=== PATIENT | female | born 1955 | race Caucasian/White ===

== ENCOUNTER 2020-11-27 13:26 | Emergency (ER) | payer BC, SELFPAY ==
--- NOTE | ~2020-11-27 | XR_ITS ---
XR chest 2V DATE: 11/27/2020 13:45 INDICATION: Chest pain TECHNIQUE: PA and lateral views COMPARISON: 03/22/2010 PA and lateral chest FINDINGS: Left AICD device with leads overlying right atrium and right ventricle. Normal heart size. No hilar or mediastinal enlargement. No pulmonary infiltrate or consolidation, pleural effusion or pulmonary vascular congestion or pneumo thorax. Surgical clips overlie the right upper abdomen, consistent with cholecystectomy. Osteoarthritic changes at the glenohumeral joints. IMPRESSION: No active cardiopulmonary disease Left AICD dual-lead pacemaker device Status post cholecystectomy Reviewed, dictated and finalized at location A.
--- NOTE | 2020-11-27 13:31 | ECG_ITS ---
Measurements Intervals [place] Rate: 96 P: 62 NC: 157 QRS: 69 QRSD: 89 T: 65 QT: 335 QTc: 424 Interpretive Statements SINUS RHYTHM LOW QRS VOLTAGE IN PRECORDIAL LEADS BASELINE ARTIFACT- I, II, III, AVR, AVL BORDERLINE ECG Electronically Signed On 11-27-2020 13:35:15 CDT by Niko Hummel D.O.
[2020-11-27 13:39] VITALS: BP 99/53; PULSE 92; RESP 16; TEMP 36.8; O2SAT 99
[2020-11-27 13:47] LABS: Basophils Absolute Auto 0.1 K/mm3 (0.0-0.1); Basophils Percent Auto 0.9 % (0.2-1.2); Eosinophils Absolute Auto 0.1 K/mm3 (0-0.3); Eosinophils Percent Auto 1.6 % (0-4.4); Hematocrit 38.5 % (37.0-47.0); Hemoglobin 12.2 g/dL (12.0-15.0); Immature Granulocyte Absolute 0.03 K/mm3 (0.00-0.031); Immature Granulocyte Percent A 0.4 % (0-0.5); Lymphocytes Absolute Auto 1.29 K/mm3 (0.9-3.2); Lymphocytes Percent Auto 15.2 % (18.3-44.2); Mean Corpuscular HGB Conc 31.7 g/dl (32-36); Mean Corpuscular Hemoglobin 27.3 pg (26-34); Mean Corpuscular Volume 86.1 fl (80-100); Monocytes Absolute Auto 0.8 K/mm3 (0.1-0.6); Monocytes Percent Auto 9.5 % (2.6-8.5); Neutrophils Absolute Auto 6.2 K/mm3 (1.3-6.7); Neutrophils Percent Auto 72.4 % (45.5-73.1); Platelet Count Result 251 k/mm3 (150-375); Red Blood Count 4.47 M/mm3 (4.2-5.4); White Blood Count 8.5 K/mm3 (4.5-10.0)
[2020-11-27 14:00] LABS: INR 0.9; Partial Thromboplastin Time 27.9 SECONDS (22.3-36.8); Prothrombin Time 12.5 Seconds (11.1-14.7)
[2020-11-27 14:02] LABS: Anion Gap 11 mmol/L (8-16); Blood Urea Nitrogen 15 mg/dL (7-17); Calcium 9.3 mg/dL (8.4-10.2); Carbon Dioxide 23 mmol/L (22-30); Chloride 94 mmol/L (98-107); Estimated CRCL calculation 53 ml/min; Estimated Glomerular Filt Rate > 60; Glucose 115 mg/dL (65-110); Potassium 4.3 mmol/L (3.4-5.0); Sodium 128 mmol/L (137-145)
[2020-11-27 14:13] LABS: Troponin I < 0.012 ng/mL (0.000-0.034)
--- NOTE | 2020-11-27 14:21 | PC.NURSE ---
contacted pt junior [phone] per pts request. states just wants to go home to bed. will follow up with pmd or [employer]oc operations intelligence officer tomorrow per rns recommendations. en route to get pt.
== END 2020-11-27 14:20 | disposition left against medical advice (07) ==
PROVIDERS: Emergency Provider Emergency Medicine
DX: Z53.21 Procedure and treatment not carried out due to patient leaving prior to being seen by health care provider (principal); R06.02 Shortness of breath
CPT/HCPCS: 36415; 71046; 80048; 84484; 85025; 85610; 85730; 93005; 99199

== ENCOUNTER 2021-05-08 15:00 | Emergency (ER) | payer BC, SELFPAY ==
[2021-05-08 15:07] VITALS: BP 112/64; PULSE 121; RESP 20; TEMP 35.7; O2SAT 97
[2021-05-08 15:09] VITALS: BP 112/64; PULSE 121; RESP 20; TEMP 35.7; O2SAT 97
--- NOTE | 2021-05-08 15:17 | ED.URI ---
HPI - URI/Sore Throat General Chief Complaint: Upper Respiratory Infection Stated Complaint: sob History of Present Illness HPI Narrative: This is 65-year-old female comes in complaining of inability to urinate states that she has stage III kidney failure. Patient states that she continues to sweat and then call since her symptoms started yesterday patient informs me she has quit smoking since yesterday. She complains of shortness of breath patient informs me she has a pacemaker with a defibrillator denies any chest pains patient denies being diabetic patient states that she does not feel well she tested herself for COVID prior to coming in and it was negative patient tells me she is vaccinated with the SH[employer] vaccination Related Data Home Medications Medication Instructions Recorded Confirmed carvedilol 05/08/21 clonazepam 05/08/21 dicyclomine mg 05/08/21 duloxetine mg PO 05/08/21 hyoscyamine sulfate mg 05/08/21 lisinopril 05/08/21 omeprazole 05/08/21 spironolactone 05/08/21 zolpidem PO 05/08/21 Allergies Allergy/AdvReac Type Severity Reaction Status Date / Time Penicillins Allergy Mild Unknown Verified 05/08/21 15:09 codeine Allergy Unknown Unknown Verified 05/08/21 15:09 prednisone Allergy Unknown Verified 05/08/21 15:09 Review of Systems Review of Systems: Sweating, shortness of breath, coughing, not feeling well, painful urination, urination red All systems reviewed & are unremarkable except as noted in HPI and below PMFSH Family History Family History (Updated 06/03/17 @ 10:53 by DOCTOR UNKNOWN) Grandparent Diabetes mellitus Father Carcinoma of colon Social History Social History Alcohol intake: current Comments At time as signature, I have reviewed and agree with nursing past medical, social, surgical and family history. Please see nursing chart for further information. There is no relevant family history pertinent to the presenting complaint. Exam Narrative: GENERAL:Well-appearing, very anxious and goes in and out of crying HEAD:Normocephalic EYES: PERRLA ENT: Nares clear, no rhinorrhea or epistaxis. Mucous membranes moist. NECK: Supple. CHEST: Clear to auscultation. HEART: tachycardy ABDOMEN: Soft, nontender, EXTREMITIES: Normal range of motion. No edema. SKIN: Warm, dry, no rash. NEURO: No focal deficits. Alert and oriented x3. After long discussion with patient and her patient crying at time and then saying she short of breath although lung are clear. I was informed that patient has severe anxiety and she is noramally like this when she get nervous or anxious . states that if she get short of breath or if he get worried about her breathing he will take her to the hosptial but he does not feel like she needs to go now. Patient informs me she is going to do what her say as he takes good care of her per patient. Course Course Level of Care: Express Care Visit Vital Signs Vital signs: Vital Signs Temperature 96.3 F L 05/08/21 15:07 Pulse Rate 121 H 05/08/21 15:07 Respiratory Rate 20 05/08/21 15:07 Blood Pressure 112/64 05/08/21 15:07 Pulse Oximetry 97 05/08/21 15:07 Temperature 96.3 F L 05/08/21 15:09 Pulse Rate 121 H 05/08/21 15:09 Respiratory Rate 20 05/08/21 15:09 Blood Pressure 112/64 05/08/21 15:09 Pulse Oximetry 97 05/08/21 15:09 MDM - URI/Sore Throat Differential Diagnosis Differential diagnosis: Likely upper respiratory infection and other (UTI, anxiety) Lab Data Labs: Urine Glucose Negative Reference Range: Negative Urine Bilirubin Negative Reference Range: Negative Urine Ketone Negative Reference Range: Negative Urine Specific [place] 1.005
== END 2021-05-08 16:06 | disposition home or self-care (01) ==
PROVIDERS: Emergency Provider Nurse Practitioner Family
DX: N39.0 Urinary tract infection, site not specified (principal); N18.30 Chronic kidney disease, stage 3 unspecified; Z95.810 Presence of automatic (implantable) cardiac defibrillator
CPT/HCPCS: 81003; 87077; 87086; 87186; 99213; G0463

== ENCOUNTER 2021-05-10 12:59 | Inpatient (IN) | payer BC, SELFPAY ==
[2021-05-10] VITALS (15 sets, daily range): BP systolic 90–126; BP diastolic 40–79; PULSE 68–109; RESP 16–31; TEMP 36.5–39.4; O2SAT 94–100; BMI 32.1
--- NOTE | ~2021-05-10 | XR_ITS ---
EXAMINATION: XR chest 1V portable EXAM DATE: 05/12/2021 23:07 INDICATION: Shortness of breath. TECHNIQUE: Portable AP frontal chest x-ray was obtained. Comparison is made to prior examination from 05/10/2021. FINDINGS: There is a dual lead pacemaker/AICD seen with leads projecting over the expected locations of the right atrial appendage and right ventricle. The lungs are clear. There are no pleural effusio ns. The cardiomediastinal silhouette is within normal limits. There is no pneumothorax suspected. There are mild bony degenerative changes. IMPRESSION: No acute cardiopulmonary findings. Reviewed, dictated and finalized at location A. IDE SALES REPRESENTATIVE
--- NOTE | ~2021-05-10 | XR_ITS ---
EXAMINATION: XR chest 1V EXAM DATE: 05/10/2021 14:21 INDICATION: Weakness. Transient alteration of awareness. TECHNIQUE: Portable AP frontal chest x-ray was obtained. Comparison is made to prior examination from 11/27/2020. FINDINGS: There is a dual lead pacemaker/AICD seen with leads projecting over the expected locations of the right atrial appendage and right ventricle. The lungs are clear. There are no pleural effusio ns. Cardiac silhouette is prominent but magnified on this AP technique. There is no pneumothorax s uspected. The bones and soft tissues are unremarkable. IMPRESSION: No acute cardiopulmonary findings. Reviewed, dictated and finalized at location B. [place] LOAN ORIGINATOR
--- NOTE | ~2021-05-10 | CT_ITS ---
EXAMINATION: CT abdomen pelvis wo con DATE: 05/10/2021 14:18 INDICATION: Abdominal pain. Urinary tract infection diagnosis on May 08. TECHNIQUE: Computed tomography (CT) of the abdomen and pelvis was performed without intravenous contr ast. Automated exposure control and iterative reconstruction technique were employed. Exam dose: 990 .37 mGy-cm total exam DLP. COMPARISON: 02/28/2016 CT abdomen pelvis FINDINGS: There is mild discoid atelectasis or scarring of the middle lobe. The lung bases are clear of consolidation. Normal heart size. Right atrial and right ventricle pacemaker leads. Normal heart s ize. No pericardial or pleural effusion. Very small sliding hiatal hernia. There is right nephromegaly and perinephric stranding and thickening of the right anterior and fingernail former ior pararenal fascia. There is some periureteral stranding on the right. No urinary tract calculus is detected. Findings suggest right pyelonephritis. Normal size of the left kidney. No perinephric stranding or perirenal fascial thickening on the left. No left urinary tract calculus or hydroureteronephrosis. The urinary bladder is unremarkable. Status post hysterectomy. There is a mild amount of free fluid in the dependent pelvis. Normal appendix. Diverticulosis of the sigmoid colon. No CT evidence of diverticulitis. No bowel obst ruction, bowel wall thickening, pneumatosis or intraperitoneal free air. Normal caliber of the abdominal aorta. No intraperitoneal or retroperitoneal or pelvic mass lesion or adenopathy. Status post cholecystectomy. There are calcified splenic granulomas consistent with old granulomatous disease. The liver, spleen, pancreas and adrenal glands are unremarkable. No bile duct or pancreatic duct dilatation. No suspicious osteolytic or osteoblastic lesions. IMPRESSION: Right nephromegaly, right perinephric stranding and thickening of the anterior and poste rior pararenal fascia on the right, right periureteral stranding, consistent with right-sided pyelone phritis No urinary tract calculus or hydroureteronephrosis Status post cholecystectomy Status post hysterectomy Very small sliding hiatal hernia Diverticulosis of the sigmoid colon; no CT evidence of diverticulitis Reviewed, dictated and finalized at Location A. Reviewed, dictated and finalized at location A. ERN DATA OPERATOR IMPRESSION: Right nephromegaly, right perinephric stranding and thickening of the anterior and posterior pararenal fascia on the right, right periureteral st randing, consistent with right-sided pyelonephritis No urinary tract calculus or hydroureteronephrosis Status post cholecystectomy Status post hysterectomy Very small sliding hiatal hernia Diverticulosis of the sigmoid colon; no CT evidence of diverticulitis
--- NOTE | ~2021-05-10 | CT_ITS ---
EXAMINATION: CT brain wo con, CT cervical spine wo con EXAM DATE: 05/10/2021 14:18 INDICATION: syncope/ head injury . TECHNIQUE: Spiral CT of the head was performed without contrast. Axial, coronal and sagittal images were reviewed. Spiral CT of the cervical spine was performed without contrast. Axial images were rev iewed. Coronal and sagittal reformatted images were also reviewed. The dose-length product (DLP) fo r this examination was 605.33 (accession [id number]), 492.68 (accession [id number]) mGy-cm. The exposure was tailored according to patient size, and iterative reconstruction (ASIR) was used as additional dose reduction technique. Comparison is made to prior examination from [address] FINDINGS: HEAD CT: There is no acute intraparenchymal hemorrhage. No evidence of intraparenchymal brain mass l esion. No evidence of acute infarction. There is no mass effect or midline shift. There is no obstru ctive hydrocephalus suspected. There are no extra-axial collections. There are no acute calvarial f ractures. The orbits are unremarkable. Soft tissue is unremarkable. The visualized sinuses and mas toid air cells are well aerated. CERVICAL CT: There is no evidence of acute cervical fracture. The odontoid process is intact. Pre- dens space is normal. Prevertebral soft tissue is normal. There are no soft tissue abnormalities id entified. There is no disc space widening or traumatic vertebral body subluxation suspected. There is advanced lower cervical spondylosis, diffuse cervical arthropathy. A detailed level by level eval uation of spondylosis can be added as addendum if requested. IMPRESSION: 1. No acute intracranial findings or cervical fracture. 2. Advanced cervical spondylosis. Reviewed, dictated and finalized at location B. EDITATION COORDINATOR IMPRESSION: 1. No acute intracranial findings or cervical fracture. 2. Advanced cervical spondylosis.
--- NOTE | 2021-05-10 13:14 | ECG_ITS ---
Measurements Intervals [place] Rate: 107 P: 67 CA: 146 QRS: 80 QRSD: 101 T: 67 QT: 314 QTc: 420 Interpretive Statements SINUS TACHYCARDIA POSSIBLE LEFT ATRIAL ENLARGEMENT BORDERLINE T WAVE ABNORMALITY- ANTERIOR LEADS BASELINE ARTIFACT- I, III, AVR, AVL ABNORMAL ECG Electronically Signed On 05-10-2021 13:44:35 PLUMBING MECHANIC by Niko Hummel D.O.
[2021-05-10 13:29] LABS: Basophils Percent Auto 0.2 % (0.2-1.2); Eosinophils Percent Auto 0.1 % (0-4.4); Hematocrit 32.8 % (37.0-47.0); Hemoglobin 10.9 g/dL (12.0-15.0); Immature Granulocyte Absolute 0.15 K/mm3 (0.00-0.031); Lymphocytes Absolute Auto 0.36 K/mm3 (0.9-3.2); Lymphocytes Percent Auto 2.5 % (18.3-44.2); Mean Corpuscular HGB Conc 33.2 g/dl (32-36); Mean Corpuscular Hemoglobin 27.7 pg (26-34); Mean Corpuscular Volume 83.5 fl (80-100); Mean Platelet Volume 10.1 fl (7.4-10.4); Monocytes Percent Auto 7.1 % (2.6-8.5); Neutrophils Absolute Auto 13.1 K/mm3 (1.3-6.7); Neutrophils Percent Auto 89.1 % (45.5-73.1); Platelet Count Result 158 k/mm3 (150-375); Red Blood Count 3.93 M/mm3 (4.2-5.4); Red Cell Distribution Width 12.7 % (11.5-14.5); White Blood Count 14.6 K/mm3 (4.5-10.0)
[2021-05-10 13:40] LABS: Lactic Acid Reflex 0.9 mmol/L (0.7-2.1)
[2021-05-10 13:41] LABS: Alanine Aminotransferase 53 U/L (4-35); Albumin Level 3.9 g/dL (3.5-5.1); Alkaline Phosphatase 186 U/L (38-126); Anion Gap 9 mmol/L (8-16); Aspartate Amino Transferase 39 U/L (14-36); Bilirubin,Total 0.5 mg/dL (0.2-1.3); Blood Urea Nitrogen 18 mg/dL (7-17); Calcium 9.3 mg/dL (8.4-10.2); Carbon Dioxide 26 mmol/L (22-30); Chloride 89 mmol/L (98-107); Estimated CRCL calculation 39 ml/min; Estimated Glomerular Filt Rate 41; Glucose 110 mg/dL (65-110); INR 1.2; Potassium 4.4 mmol/L (3.4-5.0); Prothrombin Time 14.7 Seconds (11.1-14.7); Sodium 124 mmol/L (137-145)
[2021-05-10 13:42] LABS: Partial Thromboplastin Time 32.6 SECONDS (22.3-36.8)
[2021-05-10 14:07] LABS: Add Urine Microscopic? YES; Appearance Urine Clear (Clear); Bacteria Urine 4+ /hpf; Bilirubin Urine Negative (Negative); Blood Urine 2+ (Negative); Color Urine Yellow (Yellow); Glucose Urine UA Negative (Negative); Ketones Urine Trace mg/dL (Negative); Leukocyte Esterase Ur 3+ LEU/UL (Negative); Mucus Urine Rare /lpf; Nitrate Urine Positive (Negative); Protein Urine 2+ mg/dL (Negative); Specific Grav Ur 1.006 (1.001-1.035); Squamous Epithelial Cell Urine Rare /hpf (Few); WBC Urine >75 /hpf
[2021-05-10] MEDS: SODIUM CHLORIDE 0.9% IV 1,000 ML 999 ML IV CONT ×2 (14:27→16:15)
--- NOTE | 2021-05-10 15:37 | ED.GENADULT ---
HPI - General Adult General Chief complaint: Altered Mental Status Stated complaint: hallucinating, recent uti Time Seen by Provider: 05/10/21 13:47 History of Present Illness HPI narrative: Patient 65-year-old female who presents the emergency department with chief complaint of fever change in mental status. The patient reports she was seen in urgent care on the and was diagnosed with a UTI. The patient states that since then she has been extremely weak and has been running a fever and at times has been hallucinating. The patient states that symptoms are not improved by anything reports has been taking Macrobid without improvement in her. Patient reports that she fell at home and has bruising present on her face. Related Data Home Medications Medication Instructions Recorded Confirmed carvedilol 05/08/21 clonazepam 05/08/21 dicyclomine mg 05/08/21 duloxetine mg PO 05/08/21 hyoscyamine sulfate mg 05/08/21 lisinopril 05/08/21 omeprazole 05/08/21 spironolactone 05/08/21 zolpidem PO 05/08/21 Allergies Allergy/AdvReac Type Severity Reaction Status Date / Time Penicillins Allergy Mild Unknown Verified 05/08/21 15:09 codeine Allergy Unknown Unknown Verified 05/08/21 15:09 prednisone Allergy Unknown Verified 05/08/21 15:09 Review of Systems Review of Systems: A 10 system review of systems was completed on the patient and is negative except for what is stated in the HPI. Nursing and ancillary documentation was reviewed. [facility] Family History Family History Grandparent Diabetes mellitus Father Carcinoma of colon Social History Social History Alcohol intake: current Exam Narrative: GENERAL: Well-appearing, well-nourished, and in no acute distress. HEAD: Normocephalic, there is bruising present on the face. EYES: PERRLA and EOMI. ENT: Nares clear, no rhinorrhea or epistaxis. Mucous membranes moist. NECK: Supple. CHEST: Clear to auscultation. No respiratory distress. HEART: Regular rate and rhythm. No murmur heard. Normal peripheral pulses. ABDOMEN: Soft, nontender, nondistended, normal active bowel sounds. EXTREMITIES: Normal range of motion. No edema. SKIN: Warm, dry, no rash. NEURO: No focal deficits. Alert and oriented x3. Tearful PSYCH: Normal mood and affect. Course Vital Signs Vital signs: Vital Signs Temperature 38.3 C H 05/10/21 13:02 Pulse Rate 68 05/10/21 13:02 Respiratory Rate 18 05/10/21 13:02 Blood Pressure 94/40 L 05/10/21 13:02 Pulse Oximetry 100 05/10/21 13:02 Temperature 38.2 C H 05/10/21 15:23 Pulse Rate 99 05/10/21 15:23 Respiratory Rate 22 H 05/10/21 15:23 Blood Pressure 102/61 05/10/21 15:23 Pulse Oximetry 94 05/10/21 15:23 Medical Decision Making Vital Signs Vital Signs: Vital Signs Temperature 38.3 C H 05/10/21 13:02 Pulse Rate 68 05/10/21 13:02 Respiratory Rate 18 05/10/21 13:02 Blood Pressure 94/40 L 05/10/21 13:02 Pulse Oximetry 100 05/10/21 13:02 Temperature 38.2 C H 05/10/21 15:23 Pulse Rate 99 05/10/21 15:23 Respiratory Rate 22 H 05/10/21 15:23 Blood Pressure 102/61 05/10/21 15:23 Pulse Oximetry 94 05/10/21 15:23 Lab Data Result diagrams: 05/10/21 13:17 05/10/21 13:17 Labs: Lab Results 05/10/21 05/10/21 05/10/21 Range/Units 13:17 13:17 13:17 WBC 14.6 H (4.5-10.0) K/mm3 RBC 3.93 L (4.2-5.4) M/mm3 Hgb 10.9 L (12.0-15.0) g/dL Hct 32.8 L (37.0-47.0) % MCV 83.5 (80-100) fl MCH 27.7 (26-34) pg MCHC 33.2 (32-36) g/dl RDW 12.7 (11.5-14.5) % Plt Count 158 (150-375) k/mm3 MPV 10.1 (7.4-10.4) fl Immature Gran % (Auto) 1.0 H (0-0.5) % Neut % (Auto) 89.1 H (45.5-73.1) % Lymph % (Auto) 2.5 L (18.3-44.2) % [place] % (Auto) 7.1 (2.6-8.5) % Eos % (Auto) 0.
--- NOTE | 2021-05-10 17:19 | PC.NURSE ---
This patient, Jj Hughes, was admitted to Medical Room 258-. Patient/family oriented to hospital policies and general routines including ID bracelet, bed and alarms, visiting hours, pain management, procedures, bathroom and other care routines, personal items, smoking policy, room service/diet, and visiting hours. Information on how to activate the Rapid Response Team has been discussed. Patient/Family are encouraged to report perceived risks to care and to ask questions if they do not understand what they are told or what they should do.
--- NOTE | 2021-05-10 17:30 | PM.IMHP ---
H&P: HPI History of Present Illness Date/Time: 05/10/21 17:30 Chief Complaint: Fever and hallucinations. Narrative: This is a 65-year-old female with hypertension, chronic kidney disease stage 3, and nonischemic cardiomyopathy status post ICD insertion who presented to the emergency department earlier today for evaluation of fever and hallucinations. She has not felt well for several days with generalized malaise, subjective fever, and sweats. She took a home COVID test which was negative and thus she went to urgent care on 05/08/2021 for further evaluation. At that time she was diagnosed with a urinary tract infection and was discharged with a prescription for Macrobid. Despite taking the antibiotic she has continued to feel worse and in fact last evening she developed a pretty high fever and had hallucinations, reportedly seeing things on the ceiling that she knew were not there. Additionally her appetite has been poor and she has been feeling lightheaded, dizzy, and weak upon standing. Last night she stood up to go to the bathroom and became extremely lightheaded and she fell forward onto the ground, striking the right side of her face. She does not think that she lost consciousness however she cannot be certain. CT of the abdomen and pelvis showed findings consistent with right pyelonephritis and she is being admitted in this setting. At the time my evaluation she is resting comfortably and does complain of mild dysuria, urinary urgency, and low back ache. She denies headache, visual changes, sinus congestion, sore throat, cough, chest pain, palpitations, shortness of breath, vomiting, and diarrhea. Review of Systems Review of Systems: Twelve systems were reviewed and are negative except for as per HPI. [facility] Past Medical History Medical History (Updated 05/10/21 @ 23:33 by Monalisa Costa PA-C) Congestive heart failure (12/2007) Severe LV systolic dysfunction with significant mitral regurgitation. Status post PM/ICD insertion. Depression with anxiety Gastroesophageal reflux disease Hepatitis C (2004) Treated with interferon per Dr. Wong at [facility]. Hypothyroidism Surgical History Surgical History (Updated 05/10/21 @ 23:33 by Monalisa Costa PA-C) History of cholecystectomy History of dilation and curettage (03/2010) For abnormal uterine bleeding. Pathology was benign. History of tonsillectomy Presence of combination internal cardiac defibrillator (ICD) and pacemaker (2007) Family History Family History (Updated 05/10/21 @ 16:22 by Monalisa Costa PA-C) Grandparent Diabetes mellitus Father Carcinoma of colon Mother , at age 38 from complications of rheumatic fever. Rheumatic fever Social History Social History (Updated 05/10/21 @ 23:31 by Monalisa Costa PA-C) Social History: Lives in [place] with her . She has 2 grown children. Smoked up to a pack of cigarettes a day for 48 years, now vaping a majority of the time. No alcohol or illicit substance abuse. She designates her as her surrogate decision maker and wishes to be a full code. Meds Home Medications and Allergies Home Medications Medication Instructions Recorded Confirmed Type carvedilol 12.5 mg PO BID 05/08/21 05/10/21 History clonazepam 2 mg PO TID 05/08/21 05/10/21 History dicyclomine 20 mg PO BID 05/08/21 05/10/21 History duloxetine 60 mg PO DAILY 05/08/21 05/10/21 History hyoscyamine sulfate 0.125 mg PO PRN 05/08/21 05/10/21 History lisinopril 2.5 mg PO DAILY 05/08/21 05/10/21 History omeprazole 20 mg PO BID 05/08/21 05/10/21 History spironolactone 25 mg PO DAILY 05/08/21 05/10/21 History zolpidem 12.5 mg PO HS 05/08/21 05/10/21 History bupropion HCl 300 mg PO HS 05/10/21 05/10/21 History levothyroxine 88 mcg PO DAILY 05/10/21 05/10/21 History nortriptyline 10 mg PO HS 05/10/21 05/10/21 History ondansetron 8 mg PO PRN PRN 05/10/21 05/10/21 History Allergies Allergy/AdvReac Type Severity Reaction
[2021-05-10] MEDS: SODIUM CHLORIDE 0.9% IV 1,000 ML 125 ML IV CONT (17:49)
[2021-05-10 23:48] LABS: Anion Gap 9 mmol/L (8-16); Blood Urea Nitrogen 18 mg/dL (7-17); Calcium 8.2 mg/dL (8.4-10.2); Carbon Dioxide 21 mmol/L (22-30); Chloride 98 mmol/L (98-107); Creatine Kinase 236 U/L (30-135); Estimated CRCL calculation 47 ml/min; Estimated Glomerular Filt Rate 50; Glucose 94 mg/dL (65-110); Magnesium 1.8 mg/dL (1.6-2.3); Potassium 4.3 mmol/L (3.4-5.0); Sodium 128 mmol/L (137-145)
[2021-05-10] MEDS: buPROPion HCL XL (24 HR) 150 MG TABCR 300 MG PO (23:55)
[2021-05-10] MEDS: DICYCLOMINE HCL 10 MG CAPSULE 20 MG PO (23:55)
[2021-05-10] MEDS: carvediloL 12.5 MG TABLET PO (23:56)
[2021-05-11] VITALS (14 sets, daily range): BP systolic 99–117; BP diastolic 43–68; PULSE 66–104; RESP 16–20; TEMP 36.6–38.3; O2SAT 95–98
[2021-05-11 00:51] LABS: CRP 26.8 mg/dL (<1.0)
[2021-05-11 01:15] LABS: Hepatitis B Surface Antigen Negative (Negative)
[2021-05-11 01:21] LABS: HAV RESULT Negative (Negative); Hepatitis B Core IgM Result Negative (Negative)
[2021-05-11] MEDS: NORTRIPTYLINE HCL 10 MG CAPSULE PO ×2 (01:32→20:32)
[2021-05-11] MEDS: SODIUM CHLORIDE 0.9% IV 1,000 ML 80 ML IV CONT ×2 (01:32→16:57)
[2021-05-11 02:29] LABS: Hepatitis C Virus Antibody Reactive (Negative)
[2021-05-11 03:38] LABS: Creatinine Urine 36.4 mg/dL
[2021-05-11 03:47] LABS: Sodium Urine Random 36 meq/L
[2021-05-11 05:46] LABS: Basophils Percent Auto 0.3 % (0.2-1.2); Eosinophils Percent Auto 0.1 % (0-4.4); Hematocrit 28.5 % (37.0-47.0); Hemoglobin 9.4 g/dL (12.0-15.0); Immature Granulocyte Absolute 0.07 K/mm3 (0.00-0.031); Immature Granulocyte Percent A 0.7 % (0-0.5); Lymphocytes Absolute Auto 0.33 K/mm3 (0.9-3.2); Lymphocytes Percent Auto 3.3 % (18.3-44.2); Mean Corpuscular Hemoglobin 27.9 pg (26-34); Mean Corpuscular Volume 84.6 fl (80-100); Mean Platelet Volume 10.4 fl (7.4-10.4); Monocytes Absolute Auto 0.9 K/mm3 (0.1-0.6); Monocytes Percent Auto 9.1 % (2.6-8.5); Neutrophils Absolute Auto 8.7 K/mm3 (1.3-6.7); Neutrophils Percent Auto 86.5 % (45.5-73.1); Platelet Count Result 142 k/mm3 (150-375); Red Blood Count 3.37 M/mm3 (4.2-5.4); Red Cell Distribution Width 13.2 % (11.5-14.5); White Blood Count 10.1 K/mm3 (4.5-10.0)
[2021-05-11 05:51] LABS: Alanine Aminotransferase 38 U/L (4-35); Alkaline Phosphatase 142 U/L (38-126); Anion Gap 10 mmol/L (8-16); Aspartate Amino Transferase 31 U/L (14-36); Bilirubin,Total 0.3 mg/dL (0.2-1.3); Blood Urea Nitrogen 17 mg/dL (7-17); Calcium 8.1 mg/dL (8.4-10.2); Carbon Dioxide 20 mmol/L (22-30); Chloride 99 mmol/L (98-107); Estimated CRCL calculation 47 ml/min; Estimated Glomerular Filt Rate 50; Glucose 95 mg/dL (65-110); Potassium 4.3 mmol/L (3.4-5.0); Sodium 129 mmol/L (137-145)
[2021-05-11] MEDS: LEVOTHYROXINE SODIUM 88 MCG TABLET PO (06:12)
[2021-05-11] MEDS: PANTOPRAZOLE 40 MG TABLET PO ×2 (09:08→16:53)
[2021-05-11] MEDS: carvediloL 12.5 MG TABLET PO ×2 (09:08→20:39)
[2021-05-11] MEDS: DICYCLOMINE HCL 10 MG CAPSULE 20 MG PO ×2 (09:08→16:53)
[2021-05-11] MEDS: lisinopriL 2.5 MG TABLET PO (09:08)
[2021-05-11] MEDS: DULoxetine HCL 60 MG CAPSULE.DR PO (09:08)
[2021-05-11] MEDS: ACETAMINOPHEN 325 MG TABLET 650 MG PO (09:43)
[2021-05-11] MEDS: clonazePAM (*CRX) 0.5 MG TABLET 2 MG PO ×3 (09:43→22:31)
--- NOTE | 2021-05-11 12:49 | PM.IMPN ---
Progress Note: A&P Assessment and Plan (1) Sepsis: Qualifiers: Sepsis type: sepsis due to unspecified organism Sepsis acute organ dysfunction status: with acute organ dysfunction Severe sepsis acute organ dysfunction type: acute renal failure Acute renal failure type: unspecified Severe sepsis shock status: without septic shock Qualified Code(s): A41.9 - Sepsis, unspecified organism; R65.20 - Severe sepsis without septic shock; N17.9 - Acute kidney failure, unspecified Code(s): A41.9 - Sepsis, unspecified organism Status: Acute Assessment and Plan: Present on admission and supported by fever, tachycardia, relative hypotension responsive to IV fluids, and leukocytosis in the setting of pyelonephritis. Lactic acid level within normal limits. urine culture with ESBL E coli (2) Pyelonephritis of right kidney: Code(s): N12 - Tubulo-interstitial nephritis, not specified as acute or chronic Status: Acute Assessment and Plan: 05/10 ceftriaxone begun 05/11 discontinued ceftriaxone and started Zosyn due to ESBL E coli in culture (3) Fall from ground level: Code(s): W18.30XA - Fall on same level, unspecified, initial encounter Status: Acute Assessment and Plan: Patient is uncertain if she had loss of consciousness but was feeling weak and lightheaded prior to the fall. hydration fall precautions (4) Acute kidney injury: Code(s): N17.9 - Acute kidney failure, unspecified Status: Acute Assessment and Plan: Patient reports chronic kidney disease stage 3 though it looks like her creatinine is elevated from baseline. She is being cautiously hydrated with close monitoring of volume status. Avoid nephrotoxic agents. follow-up lab (5) Hyponatremia: Code(s): E87.1 - Hypo-osmolality and hyponatremia Status: Acute Assessment and Plan: Likely due to dehydration. Monitor with hydration 05/10 124, 05/11 129 (6) Elevated LFTs: Code(s): R79.89 - Other specified abnormal findings of blood chemistry Status: Acute Assessment and Plan: May be related to infection/sepsis though she has a history of hepatitis C which was treated many years ago. Abdominal exam is fairly benign. Liver was unremarkable on CT. Subjective Date/time seen: 05/11/21 12:49 Interval history: 05/10 admitted after fall and found to have urinary tract infection with imaging consistent with acute pyelonephritis 05/11 still very tired denied pain appetite poor. Still febrile Review of Systems Review of Systems: All systems reviewed & are unremarkable except as noted in HPI and below Exam Narrative: HEENT: PERRL, sclerae nonicteric, pharyngeal mucosa pink and intact NECK: No JVD CHEST: Clear to auscultation. Normal effort. HEART: NL S1/S2, regular, no murmur ABDOMEN: BS+, soft, nontender, no mass, no bruits EXTREMITIES: No cyanosis, edema, or clubbing NEUROLOGIC: CN intact and symmetric to inspection. MUSCULOSKELETAL: Tone and strength symmetric. PSYCH: Alert. Oriented to person, place, and time. Objective Data Vital Signs Vital Signs: Vital Signs - 24 hr 05/10/21 13:02 05/10/21 13:27 05/10/21 13:28 Temperature 101.0 F H 102.9 F H Pulse Rate 68 109 H 107 H Respiratory Rate 18 29 H 23 H Blood Pressure 94/40 L 126/79 Pulse Oximetry 100 98 05/10/21 13:30 05/10/21 13:31 05/10/21 13:37 Temperature Pulse Rate 107 H 100 Respiratory Rate 28 H 31 H Blood Pressure 98/59 L Pulse Oximetry 05/10/21 13:45 05/10/21 13:46 05/10/21 14:56 Temperature 99.6 F Pulse Rate 108 H 109 H Respiratory Rate 27 H 26 H Blood Pressure 114/56 L Pulse Oximetry 05/10/21 15:23 05/10/21 15:50 05/10/21 16:28 Temperature 100.7 F H 99.6 F Pulse Rate 99 93 Respiratory Rate 22 H 23 H Blood Pressure 102/61 90/55 L Pulse Oximetry 94 98 05/10/21 16:43 05/10/21 16:56 05/10/21 20:01 Temperature 97.7
[2021-05-11] MEDS: ERTAPENEM 1 GM/NS 50 ML 1 GM/50 ML BAG IVPB (14:00)
[2021-05-11] MEDS: buPROPion HCL XL (24 HR) 150 MG TABCR 300 MG PO (20:32)
[2021-05-12] VITALS (15 sets, daily range): BP systolic 113–134; BP diastolic 55–88; PULSE 72–107; RESP 18–32; TEMP 36.8–37.2; O2SAT 92–98
[2021-05-12] MEDS: LEVOTHYROXINE SODIUM 88 MCG TABLET PO (05:35)
[2021-05-12] MEDS: SODIUM CHLORIDE 0.9% IV 1,000 ML 80 ML IV CONT (05:35)
[2021-05-12 06:12] LABS: Hematocrit 29.2 % (37.0-47.0); Hemoglobin 9.6 g/dL (12.0-15.0); Mean Corpuscular HGB Conc 32.9 g/dl (32-36); Mean Corpuscular Volume 85.1 fl (80-100); Mean Platelet Volume 10.1 fl (7.4-10.4); Platelet Count Result 174 k/mm3 (150-375); Red Blood Count 3.43 M/mm3 (4.2-5.4); Red Cell Distribution Width 13.5 % (11.5-14.5); White Blood Count 10.4 K/mm3 (4.5-10.0)
[2021-05-12 06:29] LABS: Alanine Aminotransferase 37 U/L (4-35); Albumin Level 3.1 g/dL (3.5-5.1); Alkaline Phosphatase 138 U/L (38-126); Anion Gap 10 mmol/L (8-16); Aspartate Amino Transferase 38 U/L (14-36); Bilirubin,Total 0.3 mg/dL (0.2-1.3); Blood Urea Nitrogen 14 mg/dL (7-17); Calcium 8.3 mg/dL (8.4-10.2); Carbon Dioxide 19 mmol/L (22-30); Chloride 101 mmol/L (98-107); Estimated CRCL calculation 51 ml/min; Estimated Glomerular Filt Rate 56; Glucose 100 mg/dL (65-110); Potassium 4.3 mmol/L (3.4-5.0); Sodium 130 mmol/L (137-145)
[2021-05-12] MEDS: PANTOPRAZOLE 40 MG TABLET PO ×2 (08:35→16:24)
[2021-05-12] MEDS: DICYCLOMINE HCL 10 MG CAPSULE 20 MG PO ×2 (08:35→16:24)
[2021-05-12] MEDS: carvediloL 12.5 MG TABLET PO ×2 (08:35→20:09)
[2021-05-12] MEDS: lisinopriL 2.5 MG TABLET PO (08:35)
[2021-05-12] MEDS: DULoxetine HCL 60 MG CAPSULE.DR PO (08:35)
--- NOTE | 2021-05-12 10:55 | PM.IMPN ---
Progress Note: A&P Assessment and Plan (1) Sepsis: Qualifiers: Sepsis type: sepsis due to unspecified organism Sepsis acute organ dysfunction status: with acute organ dysfunction Severe sepsis acute organ dysfunction type: acute renal failure Acute renal failure type: unspecified Severe sepsis shock status: without septic shock Qualified Code(s): A41.9 - Sepsis, unspecified organism; R65.20 - Severe sepsis without septic shock; N17.9 - Acute kidney failure, unspecified Code(s): A41.9 - Sepsis, unspecified organism Status: Acute Assessment and Plan: Present on admission and supported by fever, tachycardia, relative hypotension responsive to IV fluids, and leukocytosis in the setting of pyelonephritis. Lactic acid level within normal limits. urine and blood cultures with ESBL E coli (2) Pyelonephritis of right kidney: Code(s): N12 - Tubulo-interstitial nephritis, not specified as acute or chronic Status: Acute Assessment and Plan: 05/10 ceftriaxone begun 05/11 discontinued ceftriaxone and started Zosyn due to ESBL E coli in culture 05/12 Day 2 Zosyn. ESBL e. coli in urine and in blood x2/2 bc (3) Fall from ground level: Code(s): W18.30XA - Fall on same level, unspecified, initial encounter Status: Acute Assessment and Plan: Patient is uncertain if she had loss of consciousness but was feeling weak and lightheaded prior to the fall. hydration fall precautions (4) Acute kidney injury: Code(s): N17.9 - Acute kidney failure, unspecified Status: Acute Assessment and Plan: Patient reports chronic kidney disease stage 3 though it looks like her creatinine is elevated from baseline. She is being cautiously hydrated with close monitoring of volume status. Avoid nephrotoxic agents. 05/12 Creatinine normalized to 1.0 (down from 1.3) (5) Hyponatremia: Code(s): E87.1 - Hypo-osmolality and hyponatremia Status: Acute Assessment and Plan: Likely due to dehydration. Monitor with hydration 05/10 124, 05/11 129, 05/12 130 05/12 Stop IVF and give one dose of furosemide 20mg IV due to clinically apparent volume overload F/u lab (6) Elevated LFTs: Code(s): R79.89 - Other specified abnormal findings of blood chemistry Status: Acute Assessment and Plan: May be related to infection/sepsis though she has a history of hepatitis C which was treated many years ago. Abdominal exam is fairly benign. Liver was unremarkable on CT. 05/12 AST 38, ALT 37 Subjective Date/time seen: 05/12/21 10:55 Interval history: 05/10 admitted after fall and found to have urinary tract infection with imaging consistent with acute pyelonephritis 05/12 visit. Still very tired denied pain appetite poor. Still febrile. Short of breath with exertion. No chest pain. No swelling. No abdominal pain. No nausea or vomiting. No diarrhea or bleeding. No hematuria. Generalized weakness but no focal weakness. Review of Systems Review of Systems: All systems reviewed & are unremarkable except as noted in HPI and below Exam Narrative: HEENT: PERRL, sclerae nonicteric, pharyngeal mucosa pink and intact NECK: No JVD CHEST: Coarse breath sounds. Mildly tachypneic. HEART: NL S1/S2, regular, no murmur ABDOMEN: BS+, soft, nontender, no mass, no bruits EXTREMITIES: No cyanosis, edema, or clubbing NEUROLOGIC: CN intact and symmetric to inspection. MUSCULOSKELETAL: Tone and strength symmetric. PSYCH: Alert. Oriented to person, place, and time. Objective Data Vital Signs Vital Signs: Vital Signs - 24 hr 05/11/21 10:59 05/11/21 14:00 05/11/21 20:00 Temperature 97.8 F Pulse Rate 81 104 H Respiratory Rate 20 Blood Pressure 102/56 L Pulse Oximetry 95 96 05/11/21 20:39 05/11/21 20:41 05/12/21 00:00 Temperature 97.8 F Pulse Rate 104 H 66 97 Respiratory Rate 16 Blood Pressure 117/64 Pulse Oximetry 98 05/12
[2021-05-12] MEDS: ERTAPENEM 1 GM/NS 50 ML 1 GM/50 ML BAG IVPB (12:28)
--- NOTE | 2021-05-12 14:58 | PCOTNOTE ---
Attempted to evaluate pt. for occupational therapy. Pt. refused to participate and get out of bed.
[2021-05-12] MEDS: clonazePAM (*CRX) 0.5 MG TABLET 2 MG PO (16:22)
[2021-05-12] MEDS: FUROSEMIDE INJ 40 MG/4 ML VIAL 20 MG IV PUSH (20:08)
[2021-05-12] MEDS: buPROPion HCL XL (24 HR) 150 MG TABCR 300 MG PO (20:09)
[2021-05-12] MEDS: NORTRIPTYLINE HCL 10 MG CAPSULE PO (20:10)
[2021-05-12] MEDS: IPRATROPIUM BR 0.02% INH SOLN 0.5 MG/2.5 ML VIAL INHALATION (23:07)
[2021-05-12] MEDS: LEVALBUTEROL NEB 1.25 MG/3 ML 0.63 MG INHALATION (23:07)
[2021-05-13] VITALS (14 sets, daily range): BP systolic 104–140; BP diastolic 48–79; PULSE 73–98; RESP 18–22; TEMP 36.2–37.1; O2SAT 90–99
[2021-05-13 00:43] LABS: Glucose Point of Care 94 mg/dl (65-105)
[2021-05-13 01:07] LABS: Alveolar/Arterial O2 Gradient 43.2 mmHg; Base Excess ABG -1.2 mEq/l (+/-2.0); Device ROOM AIR; Fractional Inspired Oxygen 21 %; HCO3 ABG 22.9 mEq/l (22.0-26.0); Modified Allen's Test Unable to perform; Oxygen Content ABG 13.4 %vol (16.0-22.0); Oxygen Saturation ABG 92.8 % (95.0-100.0); PCO2 ABG 36.1 mmHg (35.0-45.0); PO2 ABG 63.3 mmHg (80.0-100.0); PO2 FiO2 Ratio Arterial Blood 3.01 %; Site Drawn RIGHT RADIAL; Total Hemoglobin 10.4 g/dL (12.0-18.0); pH ABG 7.421 (7.350-7.450)
[2021-05-13] MEDS: LEVOTHYROXINE SODIUM 88 MCG TABLET PO (05:38)
--- NOTE | 2021-05-13 07:48 | PCOTNOTE ---
Attempted OT evaluation, patient reports I'm fine and I am not working with therapy right now , will follow, RN notified.
[2021-05-13] MEDS: carvediloL 12.5 MG TABLET PO ×2 (09:00→20:48)
[2021-05-13] MEDS: DICYCLOMINE HCL 10 MG CAPSULE 20 MG PO ×2 (09:00→16:52)
[2021-05-13] MEDS: lisinopriL 2.5 MG TABLET PO (09:00)
[2021-05-13] MEDS: DULoxetine HCL 60 MG CAPSULE.DR PO (09:00)
[2021-05-13] MEDS: PANTOPRAZOLE 40 MG TABLET PO ×2 (09:00→16:52)
[2021-05-13 11:18] LABS: Hematocrit 30.1 % (37.0-47.0); Mean Corpuscular HGB Conc 33.2 g/dl (32-36); Mean Corpuscular Hemoglobin 27.9 pg (26-34); Mean Corpuscular Volume 83.8 fl (80-100); Mean Platelet Volume 10.2 fl (7.4-10.4); Platelet Count Result 242 k/mm3 (150-375); Red Blood Count 3.59 M/mm3 (4.2-5.4); Red Cell Distribution Width 13.7 % (11.5-14.5); White Blood Count 15.9 K/mm3 (4.5-10.0)
[2021-05-13 11:29] LABS: Alanine Aminotransferase 54 U/L (4-35); Albumin Level 3.4 g/dL (3.5-5.1); Alkaline Phosphatase 135 U/L (38-126); Anion Gap 9 mmol/L (8-16); Aspartate Amino Transferase 62 U/L (14-36); Bilirubin,Total 0.4 mg/dL (0.2-1.3); Blood Urea Nitrogen 11 mg/dL (7-17); Calcium 8.8 mg/dL (8.4-10.2); Carbon Dioxide 24 mmol/L (22-30); Chloride 98 mmol/L (98-107); Estimated CRCL calculation 56 ml/min; Estimated Glomerular Filt Rate > 60; Glucose 132 mg/dL (65-110); Potassium 4.3 mmol/L (3.4-5.0); Sodium 131 mmol/L (137-145)
[2021-05-13] MEDS: ERTAPENEM 1 GM/NS 50 ML 1 GM/50 ML BAG IVPB (12:21)
--- NOTE | 2021-05-13 14:30 | PM.IMPN ---
Progress Note: A&P Assessment and Plan (1) Sepsis: Qualifiers: Sepsis type: sepsis due to unspecified organism Sepsis acute organ dysfunction status: with acute organ dysfunction Severe sepsis acute organ dysfunction type: acute renal failure Acute renal failure type: unspecified Severe sepsis shock status: without septic shock Qualified Code(s): A41.9 - Sepsis, unspecified organism; R65.20 - Severe sepsis without septic shock; N17.9 - Acute kidney failure, unspecified Code(s): A41.9 - Sepsis, unspecified organism Status: Acute Assessment and Plan: Present on admission and supported by fever, tachycardia, relative hypotension responsive to IV fluids, and leukocytosis in the setting of pyelonephritis. Lactic acid level within normal limits. Urine and blood cultures with ESBL E coli. (2) Pyelonephritis of right kidney: Code(s): N12 - Tubulo-interstitial nephritis, not specified as acute or chronic Status: Acute Assessment and Plan: CT of the abdomen and pelvis showed right nephromegaly,perinephric stranding, thickening of the anterior and posterior pararenal fascia, and periureteral stranding, consistent with right-sided pyelonephritis. Started on ceftriaxone on 05/10/2021, discontinue the following day due to ESBL E coli in urine culture. Zosyn day #3. (3) Fall from ground level: Code(s): W18.30XA - Fall on same level, unspecified, initial encounter Status: Acute Assessment and Plan: Fall prior to admission with possible loss of consciousness though patient is uncertain. Likely related to weakness from sepsis, infection, and dehydration. She has been adequately hydrated. Telemetry reviewed, no significant findings thus will discontinue. PT/OT consulted. Continue fall precautions. (4) Acute kidney injury: Code(s): N17.9 - Acute kidney failure, unspecified Status: Resolved Assessment and Plan: Resolved. Creatinine was 1.30 on admission, now normal at 0.90. Likely elevated due to dehydration and infection. (5) Hyponatremia: Code(s): E87.1 - Hypo-osmolality and hyponatremia Status: Acute Assessment and Plan: [place] to be due to dehydration. Sodium has improved. Adequately hydrated with improvement in sodium (sodium trend 128, 124, 128, 129, 130, 131). IV fluids discontinued on 05/12/2021 due to apparent volume overload, given Lasix x1. (6) Elevated LFTs: Code(s): R79.89 - Other specified abnormal findings of blood chemistry Status: Acute Assessment and Plan: History of hepatitis C treated years ago. May be related to infection/sepsis. Liver unremarkable on CT. Abdominal exam benign. (7) Congestive heart failure: Onset Date: 12/2007 Code(s): I50.9 - Heart failure, unspecified Status: Chronic Assessment and Plan: She is positive 3 L this visit. IV fluids discontinued yesterday. Lasix IV given yesterday. Appears euvolemic now. Restart spironolactone Continue lisinopril and carvedilol. (8) Sore throat: Code(s): J02.9 - Acute pharyngitis, unspecified Status: Acute Assessment and Plan: Patient reports a ?severe? sore throat over the last couple of days, the were she has ever had. Check rapid strep and SARS-CoV-2 by PCR. Subjective Date/time seen: 05/13/21 14:30 Interval history: Assuming care, chart reviewed. 65-year-old female with HTN, CKD, and NICM s/p PM/ICD who presented to the ED on 04/21/2021 with fever, generalized malaise and hallucinati
[2021-05-13 18:56] LABS: SARS-CoV-2 RNA PCR Negative
[2021-05-13] MEDS: buPROPion HCL XL (24 HR) 150 MG TABCR 300 MG PO (20:48)
[2021-05-13] MEDS: NORTRIPTYLINE HCL 10 MG CAPSULE PO (20:49)
[2021-05-14] VITALS (7 sets, daily range): BP systolic 100–122; BP diastolic 50–92; PULSE 77–88; RESP 16–22; TEMP 35.9–36.6; O2SAT 94–100
[2021-05-14 05:48] LABS: Hemoglobin 9.9 g/dL (12.0-15.0); Mean Corpuscular Hemoglobin 27.7 pg (26-34); Mean Platelet Volume 9.9 fl (7.4-10.4); Platelet Count Result 243 k/mm3 (150-375); Red Blood Count 3.57 M/mm3 (4.2-5.4); Red Cell Distribution Width 13.7 % (11.5-14.5); White Blood Count 12.1 K/mm3 (4.5-10.0)
[2021-05-14 05:55] LABS: Alanine Aminotransferase 55 U/L (4-35); Alkaline Phosphatase 117 U/L (38-126); Anion Gap 8 mmol/L (8-16); Aspartate Amino Transferase 55 U/L (14-36); Bilirubin,Total 0.4 mg/dL (0.2-1.3); Blood Urea Nitrogen 11 mg/dL (7-17); Calcium 8.7 mg/dL (8.4-10.2); Carbon Dioxide 29 mmol/L (22-30); Chloride 97 mmol/L (98-107); Estimated CRCL calculation 56 ml/min; Estimated Glomerular Filt Rate > 60; Glucose 105 mg/dL (65-110); Potassium 3.9 mmol/L (3.4-5.0); Sodium 134 mmol/L (137-145)
[2021-05-14] MEDS: LEVOTHYROXINE SODIUM 88 MCG TABLET PO (08:55)
[2021-05-14] MEDS: carvediloL 12.5 MG TABLET PO (08:55)
[2021-05-14] MEDS: SPIRONOLACTONE 25 MG TABLET PO (08:56)
[2021-05-14] MEDS: PANTOPRAZOLE 40 MG TABLET PO ×2 (08:56→16:56)
[2021-05-14] MEDS: lisinopriL 2.5 MG TABLET PO (08:56)
[2021-05-14] MEDS: DULoxetine HCL 60 MG CAPSULE.DR PO (08:56)
[2021-05-14] MEDS: DICYCLOMINE HCL 10 MG CAPSULE 20 MG PO ×2 (08:56→16:56)
--- NOTE | 2021-05-14 11:52 | PM.IMPN ---
Progress Note: A&P Assessment and Plan (1) Sepsis: Qualifiers: Sepsis type: sepsis due to unspecified organism Sepsis acute organ dysfunction status: with acute organ dysfunction Severe sepsis acute organ dysfunction type: acute renal failure Acute renal failure type: unspecified Severe sepsis shock status: without septic shock Qualified Code(s): A41.9 - Sepsis, unspecified organism; R65.20 - Severe sepsis without septic shock; N17.9 - Acute kidney failure, unspecified Code(s): A41.9 - Sepsis, unspecified organism Status: Acute Assessment and Plan: Present on admission and supported by fever, tachycardia, relative hypotension responsive to IV fluids, and leukocytosis in the setting of pyelonephritis. Lactic acid level within normal limits. Urine and blood cultures with ESBL E coli. (2) Pyelonephritis of right kidney: Code(s): N12 - Tubulo-interstitial nephritis, not specified as acute or chronic Status: Acute Assessment and Plan: CT of the abdomen and pelvis showed right nephromegaly,perinephric stranding, thickening of the anterior and posterior pararenal fascia, and periureteral stranding, consistent with right-sided pyelonephritis. Pt was initially on iv rocephin empherically Urine and blood cultures with ESBL E col Zosyn day #4. rpt UC today Hopeful Dc chris (3) Fall from ground level: Code(s): W18.30XA - Fall on same level, unspecified, initial encounter Status: Acute Assessment and Plan: . PT/OT consulted. Continue fall precautions. (4) Acute kidney injury: Code(s): N17.9 - Acute kidney failure, unspecified Status: Resolved Assessment and Plan: Resolved. Creatinine was 1.30 on admission, now normal at 0.90. Likely elevated due to dehydration and infection. (5) Hyponatremia: Code(s): E87.1 - Hypo-osmolality and hyponatremia Status: Acute Assessment and Plan: [place] to be due to dehydration. Sodium has improved. to 134 (6) Elevated LFTs: Code(s): R79.89 - Other specified abnormal findings of blood chemistry Status: Acute Assessment and Plan: History of hepatitis C treated years ago. May be related to infection/sepsis. Liver unremarkable on CT. Abdominal exam benign. (7) Congestive heart failure: Onset Date: 12/2007 Code(s): I50.9 - Heart failure, unspecified Status: Chronic Assessment and Plan: Initally pt given fluids then Lasix IV given. Appears euvolemic now. Restart spironolactone Continue lisinopril and carvedilol. (8) Sore throat: Code(s): J02.9 - Acute pharyngitis, unspecified Status: Acute Assessment and Plan: Check rapid strep result still pending Subjective Date/time seen: 05/14/21 11:52 Interval history: 65-year-old female with HTN, CKD, and NICM s/p PM/ICD who presented to the ED on 04/21/2021 with fever, generalized malaise and hallucinations found to have urinary tract infection and [place] [id number], no specific compliants, pt doing better hopeful DC tomorrow Review of Systems Review of Systems: All systems reviewed & are unremarkable except as noted in HPI and below Exam Const: General: other (elderly lady ) Orientation/consciousness: oriented to person HENMT: Head: normal to inspection Resp: Effort & Inspection: no respiratory distress Auscultation: no rhonchi and no wheezes Cardio: Rate: regular rate Rhythm: regular rhythm GI: Inspection: normal
[2021-05-14] MEDS: ERTAPENEM 1 GM/NS 50 ML 1 GM/50 ML BAG IVPB (13:30)
--- NOTE | 2021-05-14 14:17 | PCPTNOTE ---
Patient refused treatment this session. When arrived in patients room had to wake patient up who then stated I am to comfortable at this time to get out of bed and I will be going home tomorrow . Therapist attempted to educate patient on trying to perform transfers for safety around the house when returning home, which the patient stated Don't need to worry about that, I am safe.
--- NOTE | 2021-05-14 17:17 | PC.NURSE ---
On 05/14/21 the student Juve Morales, provided care and completed [employer] documentation on this patient. I have reviewed the students documentation and agree with the findings
[2021-05-14 19:07] LABS: Osmolality, Urine 202 mOsm/kg (50-1200)
[2021-05-14] MEDS: buPROPion HCL XL (24 HR) 150 MG TABCR 300 MG PO (20:15)
[2021-05-14] MEDS: NORTRIPTYLINE HCL 10 MG CAPSULE PO (20:20)
[2021-05-14] MEDS: ZOLPIDEM TARTRATE (*CRX) 5 MG TABLET 10 MG PO (20:57)
[2021-05-15] VITALS (8 sets, daily range): BP systolic 113–142; BP diastolic 53–77; PULSE 72–102; RESP 20–109; TEMP 36.4–36.7; O2SAT 95–100
[2021-05-15 05:52] LABS: Hematocrit 32.2 % (37.0-47.0); Hemoglobin 10.3 g/dL (12.0-15.0); Mean Corpuscular Hemoglobin 27.6 pg (26-34); Mean Corpuscular Volume 86.3 fl (80-100); Mean Platelet Volume 10.3 fl (7.4-10.4); Platelet Count Result 264 k/mm3 (150-375); Red Blood Count 3.73 M/mm3 (4.2-5.4); Red Cell Distribution Width 13.8 % (11.5-14.5); White Blood Count 11.1 K/mm3 (4.5-10.0)
[2021-05-15 06:04] LABS: Alanine Aminotransferase 54 U/L (4-35); Albumin Level 3.1 g/dL (3.5-5.1); Alkaline Phosphatase 116 U/L (38-126); Anion Gap 6 mmol/L (8-16); Aspartate Amino Transferase 45 U/L (14-36); Bilirubin,Total 0.2 mg/dL (0.2-1.3); Blood Urea Nitrogen 9 mg/dL (7-17); Calcium 8.8 mg/dL (8.4-10.2); Carbon Dioxide 32 mmol/L (22-30); Chloride 98 mmol/L (98-107); Estimated CRCL calculation 55 ml/min; Estimated Glomerular Filt Rate > 60; Glucose 113 mg/dL (65-110); Potassium 4.2 mmol/L (3.4-5.0); Sodium 136 mmol/L (137-145)
[2021-05-15] MEDS: LEVOTHYROXINE SODIUM 88 MCG TABLET PO (06:05)
[2021-05-15] MEDS: carvediloL 12.5 MG TABLET PO ×2 (08:19→20:41)
[2021-05-15] MEDS: DICYCLOMINE HCL 10 MG CAPSULE 20 MG PO ×2 (08:19→16:49)
[2021-05-15] MEDS: DULoxetine HCL 60 MG CAPSULE.DR PO (08:19)
[2021-05-15] MEDS: PANTOPRAZOLE 40 MG TABLET PO ×2 (08:19→16:49)
[2021-05-15] MEDS: lisinopriL 2.5 MG TABLET PO (08:19)
[2021-05-15] MEDS: SPIRONOLACTONE 25 MG TABLET PO (08:19)
[2021-05-15] MEDS: ERTAPENEM 1 GM/NS 50 ML 1 GM/50 ML BAG IVPB (13:31)
[2021-05-15] MEDS: ACETAMINOPHEN 325 MG TABLET 650 MG PO (14:03)
--- NOTE | 2021-05-15 14:25 | P.PNIM_ITS ---
Progress Note: A&P Assessment and Plan (1) Septicemia: Code(s): A41.9 - Sepsis, unspecified organism Status: Acute Assessment and Plan: Patient septic on presentation with fever, tachycardia, relative hypotension responsive to IV fluids, and leukocytosis. Source of infection is pyelonephritis * Lactic acid within normal limits * Blood and urine cultures with growth of ESBL E coli * Continue IV ertapenem based on susceptibility reports * She will need 14 total days of IV antibiotic therapy * Vascular microsoft access developer to place midline catheter * Discharge planning per care coordination. Continue outpatient infusions at SNF vs home health (2) Pyelonephritis of right kidney: Code(s): N12 - Tubulo-interstitial nephritis, not specified as acute or chronic Status: Acute Assessment and Plan: CT of the abdomen and pelvis showed right nephromegaly,perinephric stranding, thickening of the anterior and posterior pararenal fascia, and periureteral stranding, consistent with right-sided pyelonephritis. * Pt was initially on iv rocephin empherically * Transitioned to IV ertapenem on 05/11 based on urine cultures with growth of ESBL * Ertapenem #6 today * Repeat urine culture is pending (3) Fall from ground level: Code(s): W18.30XA - Fall on same level, unspecified, initial encounter Status: Acute Assessment and Plan: Presented after fall at home * Patient did hit her head and has residual periorbital ecchymosis * Head CT on presentation showed no acute findings, no evidence of injury * Appreciate PT/OT evals * Fall precautions implemented (4) Acute kidney injury: Code(s): N17.9 - Acute kidney failure, unspecified Status: Resolved Assessment and Plan: Resolved. Creatinine was 1.30 on admission, now normal at 0.90. * Likely elevated due to dehydration and infection. (5) Hyponatremia: Code(s): E87.1 - Hypo-osmolality and hyponatremia Status: Acute Assessment and Plan: Sodium has improved to 136 * Likely due to dehydration and improved with IV fluids (6) Elevated LFTs: Code(s): R79.89 - Other specified abnormal findings of blood chemistry Status: Acute Assessment and Plan: Improving * History of hepatitis C treated years ago. * May be related to infection/sepsis. * Liver unremarkable on CT. * Abdominal exam benign. * Continue to monitor (7) Congestive heart failure: Onset Date: 12/2007 Code(s): I50.9 - Heart failure, unspecified Status: Chronic Assessment and Plan: Initally pt given fluids then Lasix IV given. Appears euvolemic on my exam today * Continue home spironolactone * Continue lisinopril and carvedilol. (8) Sore throat: Code(s): J02.9 - Acute pharyngitis, unspecified Status: Acute Assessment and Plan: Resolved * COVID negative * Rapid strep negative, group a strep culture also negative * Supportive care Subjective Date/time seen: 05/15/21 14:25 Interval history: Date of service: 05/15/2021 Jj Hughes is a 65-year-old female with a history of CHF, depression, anxiety, GERD, hepatitis-C, hypothyroidism who is seen in follow-up for septicemia secondary to pyelonephritis. She feels okay today. She denies fevers, chills, nausea, vomiting. No abdominal pain, flank pain, or back pain. She he does endorse diarrhea for the past 2 days. Reports her facial bruising has improved. Denies any visual changes. Denies chest p
--- NOTE | 2021-05-15 14:25 | PM.IMPN ---
Progress Note: A&P Assessment and Plan (1) Septicemia: Code(s): A41.9 - Sepsis, unspecified organism Status: Acute Assessment and Plan: Patient septic on presentation with fever, tachycardia, relative hypotension responsive to IV fluids, and leukocytosis. Source of infection is pyelonephritis Lactic acid within normal limits Blood and urine cultures with growth of ESBL E coli Continue IV ertapenem based on susceptibility reports She will need 14 total days of IV antibiotic therapy Vascular patient access director to place midline catheter Discharge planning per care coordination. Continue outpatient infusions at SNF vs home health (2) Pyelonephritis of right kidney: Code(s): N12 - Tubulo-interstitial nephritis, not specified as acute or chronic Status: Acute Assessment and Plan: CT of the abdomen and pelvis showed right nephromegaly,perinephric stranding, thickening of the anterior and posterior pararenal fascia, and periureteral stranding, consistent with right-sided pyelonephritis. Pt was initially on iv rocephin empherically Transitioned to IV ertapenem on 05/11 based on urine cultures with growth of ESBL Ertapenem #6 today Repeat urine culture is pending (3) Fall from ground level: Code(s): W18.30XA - Fall on same level, unspecified, initial encounter Status: Acute Assessment and Plan: Presented after fall at home Patient did hit her head and has residual periorbital ecchymosis Head CT on presentation showed no acute findings, no evidence of injury Appreciate PT/OT evals Fall precautions implemented (4) Acute kidney injury: Code(s): N17.9 - Acute kidney failure, unspecified Status: Resolved Assessment and Plan: Resolved. Creatinine was 1.30 on admission, now normal at 0.90. Likely elevated due to dehydration and infection. (5) Hyponatremia: Code(s): E87.1 - Hypo-osmolality and hyponatremia Status: Acute Assessment and Plan: Sodium has improved to 136 Likely due to dehydration and improved with IV fluids (6) Elevated LFTs: Code(s): R79.89 - Other specified abnormal findings of blood chemistry Status: Acute Assessment and Plan: Improving History of hepatitis C treated years ago. May be related to infection/sepsis. Liver unremarkable on CT. Abdominal exam benign. Continue to monitor (7) Congestive heart failure: Onset Date: 12/2007 Code(s): I50.9 - Heart failure, unspecified Status: Chronic Assessment and Plan: Initally pt given fluids then Lasix IV given. Appears euvolemic on my exam today Continue home spironolactone Continue lisinopril and carvedilol. (8) Sore throat: Code(s): J02.9 - Acute pharyngitis, unspecified Status: Acute Assessment and Plan: Resolved COVID negative Rapid strep negative, group a strep culture also negative Supportive care Subjective Date/time seen: 05/15/21 14:25 Interval history: Date of service: 05/15/2021 Jj Hughes is a 65-year-old female with a history of CHF, depression, anxiety, GERD, hepatitis-C, hypothyroidism who is seen in follow-up for septicemia secondary to pyelonephritis. She feels okay today. She denies fevers, chills, nausea, vomiting. No abdominal pain, flank pain, or back pain. She he does endorse diarrhea for the past 2 days. Reports her facial bruising has improved. Denies any visual changes. Denies chest pain or shortness breath. Discussed with her RN who notes that she has been around fairly well but is occasionally weak and off balance. Also reports decreased appetite and poor oral intake. Spoke with skin care instructor regarding discharge planning he reported that prior care coordinators felt the patient was not a good candidate to receive IV antibiotics at home. parts coordinator will discuss with the patient and family placement options vs home health
--- NOTE | 2021-05-15 15:15 | PCOTNOTE ---
Attempted to see Patient for OT treatment session at this time. Upon entering the room, Patient was sleeping, awoke Patient, she was very angry. Patient stated, I need to be left alone to heal, my stomach is killing me and I'm exhausted . Patient refused to participate in any activity this date.
[2021-05-15 16:28] LABS: Hepatitis C RNA, Quant PCR <15 IU/mL
[2021-05-15] MEDS: NORTRIPTYLINE HCL 10 MG CAPSULE PO (20:41)
[2021-05-15] MEDS: buPROPion HCL XL (24 HR) 150 MG TABCR 300 MG PO (20:41)
[2021-05-16 06:00] VITALS: BP 151/68; PULSE 89; RESP 18; TEMP 36.6; O2SAT 96
[2021-05-16 06:05] VITALS: BP 137/88; PULSE 97; RESP 20; TEMP 36.4; O2SAT 98
[2021-05-16 06:10] VITALS: BP 139/85; PULSE 101; RESP 20; TEMP 36.3; O2SAT 98
[2021-05-16] MEDS: LEVOTHYROXINE SODIUM 88 MCG TABLET PO (06:39)
[2021-05-16 08:20] VITALS: PULSE 90
[2021-05-16] MEDS: lisinopriL 2.5 MG TABLET PO (08:20)
[2021-05-16] MEDS: carvediloL 12.5 MG TABLET PO (08:20)
[2021-05-16] MEDS: DICYCLOMINE HCL 10 MG CAPSULE 20 MG PO (08:20)
[2021-05-16] MEDS: PANTOPRAZOLE 40 MG TABLET PO (08:20)
[2021-05-16] MEDS: DULoxetine HCL 60 MG CAPSULE.DR PO (08:21)
[2021-05-16] MEDS: SPIRONOLACTONE 25 MG TABLET PO (08:21)
[2021-05-16 08:43] LABS: Hematocrit 35.4 % (37.0-47.0); Hemoglobin 11.1 g/dL (12.0-15.0); Mean Corpuscular HGB Conc 31.4 g/dl (32-36); Mean Corpuscular Hemoglobin 27.5 pg (26-34); Mean Corpuscular Volume 87.6 fl (80-100); Mean Platelet Volume 10.3 fl (7.4-10.4); Platelet Count Result 347 k/mm3 (150-375); Red Blood Count 4.04 M/mm3 (4.2-5.4); Red Cell Distribution Width 13.8 % (11.5-14.5); White Blood Count 10.1 K/mm3 (4.5-10.0)
[2021-05-16] MEDS: LIDOCAINE HCL 1% LOCAL INJ 2 ML AMPUL 5 ML INFILTRATE (08:50)
[2021-05-16 10:00] VITALS: BP 125/75; BP 129/78; BP 132/73; PULSE 80; RESP 16; TEMP 36.6; O2SAT 100
[2021-05-16 10:10] LABS: Alanine Aminotransferase 45 U/L (4-35); Albumin Level 3.3 g/dL (3.5-5.1); Alkaline Phosphatase 120 U/L (38-126); Anion Gap 6 mmol/L (8-16); Aspartate Amino Transferase 39 U/L (14-36); Bilirubin,Total 0.2 mg/dL (0.2-1.3); Blood Urea Nitrogen 8 mg/dL (7-17); Calcium 9.3 mg/dL (8.4-10.2); Carbon Dioxide 31 mmol/L (22-30); Chloride 99 mmol/L (98-107); Estimated CRCL calculation 50 ml/min; Estimated Glomerular Filt Rate 56; Glucose 160 mg/dL (65-110); Potassium 4.6 mmol/L (3.4-5.0); Sodium 136 mmol/L (137-145)
[2021-05-16] MEDS: LOPERAMIDE HCL 2 MG CAPSULE PO (11:16)
[2021-05-16] MEDS: ERTAPENEM 1 GM/NS 50 ML 1 GM/50 ML BAG IVPB (12:19)
[2021-05-16] MEDS: SALINE LOCK FLUSH 10 ML IV PUSH (14:05)
--- NOTE | 2021-05-16 14:24 | PM.DS ---
DS: Admitting Diagnosis Discharge Date 05/16/2021 Admitting Diagnosis Fever and hallucinations. DS: Discharge Diagnosis Discharge Diagnosis (1) Sepsis: Qualifiers: Sepsis type: sepsis due to unspecified organism Sepsis acute organ dysfunction status: with acute organ dysfunction Severe sepsis acute organ dysfunction type: acute renal failure Acute renal failure type: unspecified Severe sepsis shock status: without septic shock Qualified Code(s): A41.9 - Sepsis, unspecified organism; R65.20 - Severe sepsis without septic shock; N17.9 - Acute kidney failure, unspecified Code(s): A41.9 - Sepsis, unspecified organism Status: Acute Assessment and Plan: Present on admission and supported by fever, tachycardia, relative hypotension responsive to IV fluids, and leukocytosis in the setting of pyelonephritis. Lactic acid level within normal limits. Urine and blood cultures with ESBL E coli. (2) Pyelonephritis of right kidney: Code(s): N12 - Tubulo-interstitial nephritis, not specified as acute or chronic Status: Acute Assessment and Plan: CT of the abdomen and pelvis showed right nephromegaly,perinephric stranding, thickening of the anterior and posterior pararenal fascia, and periureteral stranding, consistent with right-sided pyelonephritis. Pt was initially on iv rocephin empherically Urine and blood cultures with ESBL E col ertapenem on day 6 pt will need a total of 14days of IV ertapenem Pt has been set up with for home infusion (3) Fall from ground level: Code(s): W18.30XA - Fall on same level, unspecified, initial encounter Status: Acute Assessment and Plan: . PT/OT consulted. Continue fall precautions. (4) Acute kidney injury: Code(s): N17.9 - Acute kidney failure, unspecified Status: Resolved Assessment and Plan: Resolved. Creatinine was 1.30 on admission, now normal at 0.1 normal now after hydration (5) Hyponatremia: Code(s): E87.1 - Hypo-osmolality and hyponatremia Status: Acute Assessment and Plan: [place] to be due to dehydration. Sodium has improved. to 136 (6) Elevated LFTs: Code(s): R79.89 - Other specified abnormal findings of blood chemistry Status: Acute Assessment and Plan: History of hepatitis C treated years ago. May be related to infection/sepsis. Liver unremarkable on CT. Abdominal exam benign. (7) Congestive heart failure: Onset Date: 12/2007 Code(s): I50.9 - Heart failure, unspecified Status: Chronic Assessment and Plan: Initally pt given fluids then Lasix IV given. Appears euvolemic now. Restart spironolactone Continue lisinopril and carvedilol. (8) Sore throat: Code(s): J02.9 - Acute pharyngitis, unspecified Status: Acute Assessment and Plan: Check rapid strep result is negative DS: Summary Hospital Course Hospital Course: Jj Hughes is a 65-year-old female with a history of CHF, depression, anxiety, GERD, hepatitis-C, hypothyroidism who is seen in follow-up for septicemia secondary to pyelonephritis. She feels okay today. 65-year-old female with HTN, CKD, and NICM s/p PM/ICD who presented to the ED on 04/21/2021 with fever, generalized malaise and hallucinations found to have urinary tract infection and evidence of pyelonephritis on CT. Pts to complete 14 days of iv ertapenem for ESBL ECOLI. Pt had positive BC and UC on admission. Pt feels better and is ready for dc. Pt has some diarrhea likely
--- NOTE | 2021-05-16 14:30 | PCPTNOTE ---
Patient refused treatment this session due to waiting to go home.
--- NOTE | 2021-05-16 15:00 | PC.NURSE ---
On 05/16/21, the student, [Aron Reyes], provided care and completed [facility] documentation on this patient. I have reviewed the student's documentation and agree with the findings.
== END 2021-05-16 14:34 | disposition home health service (06) | DRG 872 ==
LOC: ANHED 15:38 → ANH2MED 16:43
PROVIDERS: Emergency Medicine; Internal Medicine; Physician Assistant; Admitting Provider Family Medicine; Emergency Provider Emergency Medicine; Visit Provider Physician Assistant
DX: A41.9 Sepsis, unspecified organism (principal); N12 Tubulo-interstitial nephritis, not specified as acute or chronic; N17.9 Acute kidney failure, unspecified; I13.0 Hypertensive heart and chronic kidney disease with heart failure and stage 1 through stage 4 chronic kidney disease, or unspecified chronic kidney disease; I42.8 Other cardiomyopathies; E87.1 Hypo-osmolality and hyponatremia; Z16.12 Extended spectrum beta lactamase (ESBL) resistance; I50.9 Heart failure, unspecified; N18.30 Chronic kidney disease, stage 3 unspecified; B96.20 Unspecified Escherichia coli [E. coli] as the cause of diseases classified elsewhere; R65.20 Severe sepsis without septic shock; W18.30XA Fall on same level, unspecified, initial encounter; Z20.822 Contact with and (suspected) exposure to COVID-19; J02.9 Acute pharyngitis, unspecified; F17.290 Nicotine dependence, other tobacco product, uncomplicated; F41.8 Other specified anxiety disorders; K21.9 Gastro-esophageal reflux disease without esophagitis; E03.9 Hypothyroidism, unspecified; R79.89 Other specified abnormal findings of blood chemistry; Z86.19 Personal history of other infectious and parasitic diseases; Z95.810 Presence of automatic (implantable) cardiac defibrillator; Z79.899 Other long term (current) drug therapy
CPT/HCPCS: 36415; 36569; 36600; 51701; 70450; 71045; 72125; 74176; 80048; 80053; 80074; 81001; 82550; 82570; 82805; 82948; 83605; 83735; 83930; 83935; 84300; 84443; 85025; 85027; 85610; 85730; 86140; 87040; 87077; 87081; 87086; 87186; 87522; 87880; 93005; 94640; 96361; 96365; 96367; 96375; 97110; 97112; 97116; 97162; 97165; 97530; 99285; A9270; C1751; C9803; G0378; J0131; J0696; J1335; J1940; J7030; U0003; U0005

== ENCOUNTER 2021-10-10 14:31 | Emergency (ER) | payer BC, SELFPAY ==
--- NOTE | ~2021-10-10 | XR_ITS ---
EXAMINATION: XR chest 1V portable DATE: 10/10/2021 16:19 INDICATION: COVID positive. Shortness of breath. TECHNIQUE: frontal view of the chest was obtained. COMPARISON: Chest radiograph dated 05/12/2021 FINDINGS: No focal airspace opacities, pulmonary edema, pleural effusion or pneumothorax. The cardiomediastinal silhouette is normal. Calcified AP window lymph nodes consistent with old granulomatous disease. Tifafnie l lead pacemaker/AICD seen with leads projecting over the expected locations of the right atrium and right ventricle. Moderate degenerative skeletal changes in the spine and at both shoulders. IMPRESSION: 1. No acute cardiopulmonary disease. Reviewed, dictated and finalized at location A.
[2021-10-10 14:57] VITALS: BP 133/107; PULSE 110; RESP 20; TEMP 37.1; O2SAT 98
--- NOTE | 2021-10-10 15:18 | PC.NURSE ---
EDP at bedside to assess pt.
--- NOTE | 2021-10-10 15:39 | ED.URI ---
HPI - URI/Sore Throat General Chief Complaint: Upper Respiratory Infection Stated Complaint: covid +, headache Time Seen by Provider: 10/10/21 15:16 History of Present Illness HPI Narrative: 65-year-old female presented to the emergency room for evaluation of a recent COVID-positive test. Patient states that she has COVID really bad . Patient is complaining of headache, body aches and some shortness of breath. Patient's denying fever. Patient states she has not taken any medications to alleviate her symptoms. Related Data Home Medications Medication Instructions Recorded Confirmed carvedilol 12.5 mg tablet 12.5 mg PO BID 05/08/21 05/10/21 clonazepam 2 mg tablet 2 mg PO TID 05/08/21 05/10/21 dicyclomine 20 mg tablet 20 mg PO BID 05/08/21 05/10/21 duloxetine 60 mg capsule,delayed 60 mg PO DAILY 05/08/21 05/10/21 release hyoscyamine sulfate 0.125 mg 0.125 mg PO PRN nausea 05/08/21 05/10/21 sublingual tablet lisinopril 2.5 mg tablet 2.5 mg PO DAILY 05/08/21 05/10/21 omeprazole 20 mg capsule,delayed 20 mg PO BID 05/08/21 05/10/21 release spironolactone 25 mg tablet 25 mg PO DAILY 05/08/21 05/10/21 zolpidem 12.5 mg tablet,extended 12.5 mg PO HS 05/08/21 05/10/21 release,multiphase bupropion HCl 300 mg 24 hr tablet, 300 mg PO HS 05/10/21 05/10/21 extended release levothyroxine 88 mcg tablet 88 mcg PO DAILY 05/10/21 05/10/21 nortriptyline 10 mg capsule 10 mg PO HS 05/10/21 05/10/21 ondansetron 8 mg disintegrating 8 mg PO PRN PRN Nausea 05/10/21 05/10/21 tablet Allergies Allergy/AdvReac Type Severity Reaction Status Date / Time Penicillins Allergy Mild Unknown Verified 05/08/21 15:09 codeine Allergy Unknown Unknown Verified 05/08/21 15:09 prednisone Allergy Unknown Verified 05/08/21 15:09 Review of Systems Review of Systems: CONSTITUTIONAL: Denies fever, chills, or sweats. EYES: Denies visual changes, redness, or discharge. ENT: Denies rhinorrhea, congestion, sore throat, or otalgia. CARDIOVASCULAR: Denies chest pain, palpitations, or edema. RESPIRATORY: Reports dyspnea. GASTROINTESTINAL: Denies abdominal pain, nausea, vomiting, or diarrhea. GENITOURINARY: Denies dysuria or hematuria. SKIN: Denies rash or itching. MUSCULOSKELETAL: Reports bodyaches NEUROLOGIC:Reports headache PSYCHIATRIC: Denies anxiety or depression. [facility] Past Medical History Medical History (Updated 10/10/21 @ 16:32 by George Sainz, COST SPECIALIST) Congestive heart failure (12/2007) Severe LV systolic dysfunction with significant mitral regurgitation. Status post PM/ICD insertion. Depression with anxiety Gastroesophageal reflux disease Hepatitis C (2004) Treated with interferon per Dr. Wong at [facility]. Hypothyroidism Surgical History Surgical History (Updated 05/10/21 @ 23:33 by Monalisa Costa PA-C) History of cholecystectomy History of dilation and curettage (03/2010) For abnormal uterine bleeding. Pathology was benign. History of tonsillectomy Presence of combination internal cardiac defibrillator (ICD) and pacemaker (2007) Family History Family History (Updated 05/10/21 @ 16:22 by Monalisa Costa PA-C) Grandparent Diabetes mellitus Father Carcinoma of colon Mother , at age 38 from complications of rheumatic fever. Rheumatic fever Social History Social History (Updated 05/10/21 @ 23:31 by Monalisa Costa PA-C) Social History: Lives in [place] with her . She has 2 grown children. Smoked up to a pack of cigarettes a day for 48 years, now vaping a majority of the time. No alcohol or illicit substance abuse. She designates her as her surrogate decision maker and wishes to be a full code. Exam Narrative: GENERAL: Well-appearing, well-nourished, and in no acute distress. HEAD: Normocephalic, atraumatic. EYES: PERRLA and EOMI. ENT: Nares clear, no rhinorrhea or epistaxis. Mucous membranes moist. Oropharynx without tonsillar hypertrophy exudate or other lesions. Bilateral
--- NOTE | 2021-10-10 16:09 | PC.NURSE ---
Radiology at bedside to obtain portable cxr.
[2021-10-10 16:47] VITALS: BP 95/54; PULSE 100; RESP 18; O2SAT 96
== END 2021-10-10 16:50 | disposition home or self-care (01) ==
PROVIDERS: Emergency Provider Nurse Practitioner Family; PCP Internal Medicine
DX: U07.1 COVID-19 (principal); I50.20 Unspecified systolic (congestive) heart failure; E03.9 Hypothyroidism, unspecified; K21.9 Gastro-esophageal reflux disease without esophagitis; F41.8 Other specified anxiety disorders; Z86.19 Personal history of other infectious and parasitic diseases; Z95.810 Presence of automatic (implantable) cardiac defibrillator; F17.290 Nicotine dependence, other tobacco product, uncomplicated
CPT/HCPCS: 71045; 99283

== ENCOUNTER 2021-12-23 18:49 | Emergency (ER) | payer BC, SELFPAY ==
--- NOTE | 2021-12-23 19:12 | PC.NURSE ---
Pt seen exiting ER lobphan. Stated to camp head counselor that she was going to speak to her as he had her kids in the car. Ambulated out of ED with steady, even, unassisted gait.
[2021-12-23 19:14] VITALS: BP 130/52; PULSE 84; RESP 16; TEMP 36.8; O2SAT 97
--- NOTE | 2021-12-23 19:48 | ED.ANIMALBIT ---
HPI - Animal Bite General Chief Complaint: Animal Bite Stated Complaint: dog bite right arm Time Seen by Provider: 12/23/21 19:41 History of Present Illness HPI narrative: 66-year-old female presented the emergency room with a dog bite to her right forearm. Patient states it was her dog. States the dog is up-to-date on all of its rabies vaccinations. States her tetanus status is not up-to-date. Related Data Home Medications Medication Instructions Recorded Confirmed carvedilol 12.5 mg tablet 12.5 mg PO BID 05/08/21 05/10/21 clonazepam 2 mg tablet 2 mg PO TID 05/08/21 05/10/21 dicyclomine 20 mg tablet 20 mg PO BID 05/08/21 05/10/21 duloxetine 60 mg capsule,delayed 60 mg PO DAILY 05/08/21 05/10/21 release hyoscyamine sulfate 0.125 mg 0.125 mg PO PRN nausea 05/08/21 05/10/21 sublingual tablet lisinopril 2.5 mg tablet 2.5 mg PO DAILY 05/08/21 05/10/21 omeprazole 20 mg capsule,delayed 20 mg PO BID 05/08/21 05/10/21 release spironolactone 25 mg tablet 25 mg PO DAILY 05/08/21 05/10/21 zolpidem 12.5 mg tablet,extended 12.5 mg PO HS 05/08/21 05/10/21 release,multiphase bupropion HCl 300 mg 24 hr tablet, 300 mg PO HS 05/10/21 05/10/21 extended release levothyroxine 88 mcg tablet 88 mcg PO DAILY 05/10/21 05/10/21 nortriptyline 10 mg capsule 10 mg PO HS 05/10/21 05/10/21 ondansetron 8 mg disintegrating 8 mg PO PRN PRN Nausea 05/10/21 05/10/21 tablet Allergies Allergy/AdvReac Type Severity Reaction Status Date / Time Penicillins Allergy Mild Unknown Verified 12/23/21 19:19 codeine Allergy Unknown Unknown Verified 12/23/21 19:19 prednisone Allergy Unknown Verified 12/23/21 19:19 Review of Systems Review of Systems: CONSTITUTIONAL: Denies fever, chills, or sweats. EYES: Denies visual changes, redness, or discharge. ENT: Denies rhinorrhea, congestion, sore throat, or otalgia. CARDIOVASCULAR: Denies chest pain, palpitations, or edema. RESPIRATORY: Denies cough or dyspnea. GASTROINTESTINAL: Denies abdominal pain, nausea, vomiting, or diarrhea. GENITOURINARY: Denies dysuria or hematuria. SKIN: Reports dog bite right forearm MUSCULOSKELETAL: Denies back pain, joint pain, or myalgia. NEUROLOGIC: Denies headache, numbness, dizziness, or weakness. PSYCHIATRIC: Denies anxiety or depression. [facility] Past Medical History Medical History Congestive heart failure (12/2007) Severe LV systolic dysfunction with significant mitral regurgitation. Status post PM/ICD insertion. Depression with anxiety Gastroesophageal reflux disease Hepatitis C (2004) Treated with interferon per Dr. Wong at [facility]. Hypothyroidism Surgical History Surgical History History of cholecystectomy History of dilation and curettage (03/2010) For abnormal uterine bleeding. Pathology was benign. History of tonsillectomy Presence of combination internal cardiac defibrillator (ICD) and pacemaker (2007) Family History Family History Grandparent Diabetes mellitus Father Carcinoma of colon Mother , at age 38 from complications of rheumatic fever. Rheumatic fever Social History Social History Social History: Lives in [place] with her . She has 2 grown children. Smoked up to a pack of cigarettes a day for 48 years, now vaping a majority of the time. No alcohol or illicit substance abuse. She designates her as her surrogate decision maker and wishes to be a full code. Exam Narrative: GENERAL: Well-appearing, well-nourished, no physical limitations, and in no acute distress. HEAD: Normocephalic, atraumatic. EYES: Conjunctivae normal, PERRLA and EOMI. CHEST: Clear to auscultation. No respiratory distress. No wheezes rales or rhonchi. No tenderness. HEART: Regular rate and rhythm. No murmur heard. N
[2021-12-23] MEDS: CLINDAMYCIN HCL 150 MG CAP 300 MG PO (20:04)
[2021-12-23] MEDS: SULFAMETHOXAZOLE/TRIMETHOPRIM 800/160 MG DS TABLET 1 TAB PO (20:04)
[2021-12-23] MEDS: TETANUS,DIPHTHERIA,AC PERTUSSIS ADULT (0.5 ML) BOOSTRIX IM (20:05)
== END 2021-12-23 20:13 | disposition home or self-care (01) ==
LOC: ANHED 19:50
PROVIDERS: Emergency Provider Nurse Practitioner Family; PCP Internal Medicine
DX: S51.851A Open bite of right forearm, initial encounter (principal); Z23 Encounter for immunization; I50.9 Heart failure, unspecified; F41.8 Other specified anxiety disorders; K21.9 Gastro-esophageal reflux disease without esophagitis; E03.9 Hypothyroidism, unspecified; Z86.19 Personal history of other infectious and parasitic diseases; Z95.810 Presence of automatic (implantable) cardiac defibrillator; F17.210 Nicotine dependence, cigarettes, uncomplicated; F17.290 Nicotine dependence, other tobacco product, uncomplicated; W54.0XXA Bitten by dog, initial encounter
CPT/HCPCS: 90471; 90715; 99283; A9270

== ENCOUNTER 2022-03-19 19:29 | Observation (INO) | payer BC, SELFPAY ==
[2022-03-19] VITALS (16 sets, daily range): BP systolic 145–153; BP diastolic 77–85; PULSE 81–103; RESP 13–21; TEMP 36.8; O2SAT 87–97
--- NOTE | ~2022-03-19 | XR_ITS ---
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 RESULT: Lines, tubes, and devices: Left chest pacer/defibrillator with intact leads. Cholecystectomy clips. Lungs and pleura: Minimal subsegmental scar/atelectasis, otherwise clear. Cardiomediastinal silhouette: Stable. Other: No acute osseous or upper abdominal finding. IMPRESSION: No acute cardiopulmonary process. Reviewed, dictated and finalized at location K. IGERATION UNIT REPAIRER
--- NOTE | ~2022-03-19 | CT_ITS ---
EXAMINATION: CT brain wo con DATE: 03/19/2022 21:27 INDICATION: ams . TECHNIQUE: Computed tomography (CT) of the head was performed without intravenous contrast. The mA wa s adjusted according to patient size. Iterative reconstruction technique was employed. The dose-lengt h product was 605.33 mGy-cm. COMPARISON: 05/10/2021 FINDINGS: No acute intracranial hemorrhage or extra-axial fluid collection. No hydrocephalus, mass, or herniation. No acute ischemic infarct. Unremarkable dural venous sinus attenuation. No acute osseous abnormality. The aerated spaces are clear. Mild atrophy and chronic white matter change. Atherosclerotic intracranial calcification. IMPRESSION: No acute intracranial process. Reviewed, dictated and finalized at location K. Y STITCHER
--- NOTE | 2022-03-19 20:33 | ED.AMS ---
HPI - Altered Mental Status General Chief Complaint: Altered Mental Status Stated Complaint: hallucinations since 1400/confusion Time Seen by Provider: 03/19/22 20:05 History of Present Illness HPI narrative: Patient is a 66-year-old female with a history of hypertension, CKD, NICM s/p ICD presenting with altered mental status. Patient has been confused since this afternoon per her son. He states that she has been saying bizarre things such as there are holes in her arms. States that she had an episode similar to this in the past and was found to be septic. Patient states that she has been urinating very frequently. States that she has had a decreased appetite but she thinks it is related to depression because she had to send her youngest daughter to rehab yesterday. She denies any chest pain or abdominal pain. States that she has had some left-sided flank pain. She denies fevers, headache, shortness of breath, cough, nausea or vomiting, diarrhea, leg swelling. Related Data Home Medications Medication Instructions Recorded Confirmed carvedilol 12.5 mg tablet 12.5 mg PO BID 05/08/21 03/20/22 clonazepam 2 mg tablet 2 mg PO TID 05/08/21 03/20/22 dicyclomine 20 mg tablet 20 mg PO BID 05/08/21 03/20/22 duloxetine 60 mg capsule,delayed 60 mg PO DAILY 05/08/21 03/20/22 release omeprazole 20 mg capsule,delayed 20 mg PO BID 05/08/21 03/20/22 release spironolactone 25 mg tablet 25 mg PO DAILY 05/08/21 03/20/22 zolpidem 12.5 mg tablet,extended 12.5 mg PO HS 05/08/21 03/20/22 release,multiphase bupropion HCl 300 mg 24 hr tablet, 300 mg PO HS 05/10/21 03/20/22 extended release levothyroxine 88 mcg tablet 88 mcg PO DAILY 05/10/21 03/20/22 nortriptyline 10 mg capsule 10 mg PO HS 05/10/21 03/20/22 baclofen 10 mg tablet 10 mg PO TID PRN Muscle Pain 03/20/22 03/20/22 colestipol 1 gram tablet 1 g PO DAILY 03/20/22 03/20/22 Allergies Allergy/AdvReac Type Severity Reaction Status Date / Time codeine Allergy Intermediate Itching Verified 03/20/22 02:15 Penicillins Allergy Intermediate Itching Verified 03/20/22 02:15 prednisone Allergy Intermediate Hives Verified 03/20/22 02:15 Review of Systems Review of Systems: All systems reviewed & are unremarkable except as noted in HPI and below PMFSH Past Medical History Medical History (Updated 03/20/22 @ 22:35 by Rosangela Guevara MD) Congestive heart failure (12/2007) Severe LV systolic dysfunction with significant mitral regurgitation. Status post PM/ICD insertion. Depression with anxiety Gastroesophageal reflux disease Hepatitis C (2004) Treated with interferon per Dr. Wong at [facility]. Hypothyroidism Surgical History Surgical History History of cholecystectomy History of dilation and curettage (03/2010) For abnormal uterine bleeding. Pathology was benign. History of tonsillectomy Presence of combination internal cardiac defibrillator (ICD) and pacemaker (2007) Family History Family History Grandparent Diabetes mellitus Father Carcinoma of colon Mother , at age 38 from complications of rheumatic fever. Rheumatic fever Social History Social History Social History: Lives in [place] with her . She has 2 grown children. Smoked up to a pack of cigarettes a day for 48 years, now vaping a majority of the time. No alcohol or illicit substance abuse. She designates her as her surrogate decision maker and wishes to be a full code. Smoking status: Current some day smoker Tobacco type: e-cigarettes/vaping Alcohol intake: never Substance use: never Lack of Transportation: No Lack of Food: Never True Current Housing: I Have Housing Concerned About Future Housing: No Difficulty Paying Gas/Electric Bills: No Difficulty Paying for Meds: No Currently Unemployed:
[2022-03-19 20:38] LABS: Appearance Urine Clear (Clear); Basophils Absolute Auto 0.1 K/mm3 (0.0-0.1); Basophils Percent Auto 0.6 % (0.2-1.2); Bilirubin Urine 2+ (Negative); Blood Urine Negative (Negative); Color Urine Yellow (Yellow); Eosinophils Absolute Auto 0.1 K/mm3 (0-0.3); Eosinophils Percent Auto 0.5 % (0-4.4); Glucose Urine UA Negative (Negative); Hematocrit 40.9 % (37.0-47.0); Immature Granulocyte Absolute 0.04 K/mm3 (0.00-0.031); Immature Granulocyte Percent A 0.3 % (0-0.5); Ketones Urine Trace mg/dL (Negative); Leukocyte Esterase Ur Negative LEU/UL (Negative); Lymphocytes Percent Auto 9.5 % (18.3-44.2); Mean Corpuscular HGB Conc 31.8 g/dl (32-36); Mean Corpuscular Hemoglobin 27.5 pg (26-34); Mean Corpuscular Volume 86.7 fl (80-100); Mean Platelet Volume 9.9 fl (7.4-10.4); Monocytes Absolute Auto 0.6 K/mm3 (0.1-0.6); Monocytes Percent Auto 4.6 % (2.6-8.5); Neutrophils Absolute Auto 10.6 K/mm3 (1.3-6.7); Neutrophils Percent Auto 84.5 % (45.5-73.1); Nitrate Urine Negative (Negative); Platelet Count Result 308 k/mm3 (150-375); Protein Urine 2+ mg/dL (Negative); Red Blood Count 4.72 M/mm3 (4.2-5.4); Red Cell Distribution Width 13.7 % (11.5-14.5); Specific Grav Ur 1.025 (1.001-1.035); Urobilinogen Urine 0.2 mg/dL (<2.0); White Blood Count 12.6 K/mm3 (4.5-10.0)
[2022-03-19] MEDS: SODIUM CHLORIDE 0.9% IV 1,000 ML 999 ML IV CONT ×2 (20:42→23:07)
[2022-03-19 20:47] LABS: Alanine Aminotransferase 19 U/L (6-35); Albumin Level 4.6 g/dL (3.5-5.1); Alkaline Phosphatase 105 U/L (38-126); Anion Gap 7 mmol/L (8-16); Aspartate Amino Transferase 31 U/L (14-36); Bilirubin,Total 0.4 mg/dL (0.2-1.3); Blood Urea Nitrogen 19 mg/dL (7-17); Calcium 9.6 mg/dL (8.4-10.2); Carbon Dioxide 26 mmol/L (22-30); Chloride 106 mmol/L (98-107); Estimated Glomerular Filt Rate 35; Glucose 113 mg/dL (65-110); Potassium 4.6 mmol/L (3.4-5.0); Sodium 139 mmol/L (137-145)
[2022-03-19 20:58] LABS: Hyaline Casts Urine 20-29 /lpf; Mucus Urine Moderate /lpf; Squamous Epithelial Cell Urine Many /hpf (Few)
[2022-03-19 21:03] LABS: INR 1.1; Partial Thromboplastin Time 29.6 SECONDS (22.3-36.8); Prothrombin Time 13.6 Seconds (11.1-14.7)
[2022-03-19 21:05] LABS: Add Urine Microscopic? YES
[2022-03-19 21:28] LABS: Lactic Acid Reflex 1.3 mmol/L (0.7-2.0)
[2022-03-19 21:42] LABS: Ethanol < 10 mg/dL (<10)
[2022-03-19 21:52] LABS: Influenza A QL RT-PCR Negative (Negative); Influenza B QL RT-PCR Negative (Negative); RSV RNA, RT-PCR Negative (Negative); SARS-CoV-2 RNA PCR Negative
--- NOTE | 2022-03-19 22:30 | PM.IMHP ---
H&P: HPI History of Present Illness Date/Time: 03/19/22 22:30 Chief Complaint: ALTERED MENTAL STATUS Narrative: This is a 66-year-old female with past medical history significant for congestive heart failure, pacemaker in-situ, depression with anxiety, gastroesophageal reflux disease, hepatitis C, hypothyroidism. Patient was brought to the emergency room for evaluation due to altered mental status as per family members, she has been her usual state of health prior to this although she states has had a significant amount of stress as of lately. Denies any fevers, rigors, chills, nausea, vomiting, cough, sputum production, no pain or burning with urination, no abdominal pain. preliminary workup has been essentially nonrevealing. Review of Systems Review of Systems: Patient with altered mental status most of the history has been obtained upon reviewing medical records and speaking with family member who is at bedside however patient was able to state why she is in the hospital and give appropriate answers however her mood and affect seem to be off Constitutional: Constitutional: Denies chills, Denies fever(s), Denies malaise, Denies night sweats and Denies poor appetite Eyes: Eyes: Denies change in vision ENT: Denies dysphagia, Denies vertigo, Denies dizziness and Denies odynophagia Cardiovascular: Cardiovascular: Denies chest pain, Denies lightheadedness, Denies palpitations and Denies dyspnea on exertion Respiratory: Respiratory: Denies cough, Denies dyspnea and Denies wheezing Gastrointestinal: Gastrointestinal: Denies abdominal pain, Denies dyspepsia, Denies heartburn, Denies diarrhea, Denies nausea and Denies vomiting Genitourinary: Genitourinary: Denies dysuria Musculoskeletal: Musculoskeletal: Denies back pain, Denies limited range of motion and Denies muscle weakness Integumentary/Breasts: Skin/Breast: Denies rash Neurologic: Reports behavioral changes, Reports confusion, Reports headache(s), Denies focal weakness, Denies loss of vision and Denies Sensory deficit (Neuro) Psychiatric: Psychiatric: Reports abnormal sleep pattern, Reports behavioral changes and Reports confusion Endocrine: Endocrine: Denies cold intolerance, Denies flushing, Denies heat intolerance, Denies polyphagia, Denies polydipsia and Denies palpitations Hematologic/Lymphatic: Hematologic/Lymphatic: Reports no additional hematologic/lymphatic complaints and Reports as per HPI Allergic/Immunologic: Allergic/Immunologic: Reports no additional allergic/immunologic complaints and Reports as per HPI [facility] Past Medical History Medical History (Updated 03/20/22 @ 02:32 by Javier Dallas MD) Congestive heart failure (12/2007) Severe LV systolic dysfunction with significant mitral regurgitation. Status post PM/ICD insertion. Depression with anxiety Gastroesophageal reflux disease Hepatitis C (2004) Treated with interferon per Dr. Wong at [facility]. Hypothyroidism Surgical History Surgical History History of cholecystectomy History of dilation and curettage (03/2010) For abnormal uterine bleeding. Pathology was benign. History of tonsillectomy Presence of combination internal cardiac defibrillator (ICD) and pacemaker (2007) Family History Family History Grandparent Diabetes mellitus Father Carcinoma of colon Mother , at age 38 from complications of rheumatic fever. Rheumatic fever Social History Social History Social History: Lives in [place] with her . She has 2 grown children. Smoked up to a pack of cigarettes a day for 48 years, now vaping a majority of the time. No alcohol or illicit substance abuse. She designates her as her surrogate decision maker and wishes to be a full code. Smoking status: Current some day smoker Tobacco type:
[2022-03-19 22:38] LABS: Amphetamine Screen Urine Negative (Negative); Barbiturate Screen Urine Negative (Negative); Benzodiazepines Screen Urine Positive (Negative); Cannabinoid Screen Urine Negative (Negative); Cocaine Screen Urine Negative (Negative); Methadone Screen Urine Negative (Negative); Opiate Screen Urine Negative (Negative); Phencyclidine Screen Urine Negative (Negative)
[2022-03-20] VITALS (7 sets, daily range): BP systolic 129–142; BP diastolic 49–63; PULSE 78–95; RESP 16–22; TEMP 36.2–37.1; O2SAT 94–99; BMI 31.4
--- NOTE | 2022-03-20 00:38 | PC.NURSE ---
RN to RN given at this time to AMAYA Odom at [facility].
[2022-03-20] MEDS: DICYCLOMINE HCL 10 MG CAPSULE 20 MG PO ×2 (08:10→16:30)
[2022-03-20] MEDS: carvediloL 12.5 MG TABLET PO ×2 (08:11→20:38)
[2022-03-20] MEDS: LEVOTHYROXINE SODIUM 88 MCG TABLET PO (08:12)
[2022-03-20] MEDS: SPIRONOLACTONE 25 MG TABLET PO (08:12)
[2022-03-20] MEDS: COLESTIPOL HCL 1 GM TABLET PO (08:13)
[2022-03-20] MEDS: PANTOPRAZOLE 40 MG TABLET PO ×2 (08:13→16:30)
[2022-03-20 12:17] LABS: Anion Gap 8 mmol/L (8-16); Blood Urea Nitrogen 16 mg/dL (7-17); Calcium 8.7 mg/dL (8.4-10.2); Carbon Dioxide 25 mmol/L (22-30); Chloride 104 mmol/L (98-107); Estimated CRCL calculation 48 ml/min; Estimated Glomerular Filt Rate 56; Glucose 111 mg/dL (65-110); Potassium 3.9 mmol/L (3.4-5.0); Sodium 137 mmol/L (137-145)
--- NOTE | 2022-03-20 15:53 | PM.IMPN ---
Progress Note: A&P Assessment and Plan (1) Altered mental status: Code(s): R41.82 - Altered mental status, unspecified Status: Acute Assessment and Plan: continue to monitor supportive care lab work reviewed CT of the head reviewed patient noted to be on a considerable amount of psychotropics which are being held care coordination consult per my discussion with the psychiatrist (2) Depression with anxiety: Code(s): F41.8 - Other specified anxiety disorders Status: Acute Assessment and Plan: holding home meds continue to monitor (3) Gastroesophageal reflux disease: Code(s): K21.9 - Gastro-esophageal reflux disease without esophagitis Status: Acute Assessment and Plan: PPI as needed (4) Presence of combination internal cardiac defibrillator (ICD) and pacemaker: Onset Date: 2007 Code(s): Z95.810 - Presence of automatic (implantable) cardiac defibrillator Status: Acute Assessment and Plan: continue to monitor (5) Congestive heart failure: Onset Date: 12/2007 Code(s): I50.9 - Heart failure, unspecified Status: Chronic Assessment and Plan: patient appears euvolemic Subjective Date/time seen: 03/20/22 15:53 patient is confused Review of Systems Review of Systems: unobtainable due to patient being confused Exam Const: General: comfortable, no acute distress, well developed, alert, awake and average body habitus Nutritional Appearance: overweight Orientation/consciousness: patient oriented x3 Limitations: altered mental status HENMT: Head: normal to inspection, normocephalic and atraumatic Ears: hearing grossly normal bilaterally Face/Nose/Sinus: normal facial exam Face and sinus: normal facial exam Eyes: General: appearance normal, both eyes and all related structures Pupils: Equal, round and reactive pupils present EOM: EOMs intact bilaterally Neck: Neck: full ROM, no lymphadenopathy and no JVD Thyroid: thyroid normal Lymphatic: no lymphadenopathy noted Resp: Effort & Inspection: normal respiratory effort and able to speak in complete sentences Auscultation: clear to auscultation bilaterally Cardio: Jugular venous distension: no JVD Rate: regular rate Rhythm: regular rhythm Heart sounds: S1 normal heart sound present and S2 normal heart sound present GI: Inspection: Pannus present GI Palp: Yes Soft to palpation and Yes No hepatosplenomegaly present : General: Yes deferred Skin: Rashes: no rashes Wounds: no wounds Neuro: General: patient oriented x3 and CN's II-XI intact bilaterally Cranial nerves: Yes CN's II-XII intact bilaterally and Yes Equal, round and reactive pupils present Cognition (Neuro): normal cognition Speech: normal speech Gait exam (Neuro): Unable to assess gait Motor exam (neuro): 5/5 motor strength present throughout Extrem: General: normal to inspection, full ROM, no joint enlargement and no pedal edema Objective Data Vital Signs Vital Signs: Vital Signs - 24 hr 03/19/22 19:39 03/19/22 20:31 03/19/22 20:45 Temperature 98.3 F Pulse Rate 103 H 91 88 Respiratory Rate 18 17 13 Blood Pressure 145/85 H Pulse Oximetry 97 93 96 Oxygen Delivery 03/19/22 21:00 03/19/22 21:15 03/19/22 21:30 Temperature Pulse Rate 85 92 89 Respiratory Rate 16 18 20 Blood Pressure Pulse Oximetry 95 91 94 Oxygen Delivery 03/19/22 21:46 03/19/22 21:58 03/19/22 22:00 Temperature Pulse Rate 88 87 86 Respiratory Rate 13 20 19 Blood Pressure 153/83 H 147/77 H Pulse Oximetry 91 90 87 L Oxygen Delivery 03/19/22 22:01 03/19/22 22:15 03/19/22 22:30 Temperature Pulse Rate 85 81 90 Respiratory Rate 18 17 21 H Blood Pressure Pulse Oximetry 94 97 96 Oxygen Delivery 03/19/22 22:55 03/19/22 23:00 03/19/22 23:23 Temperature Pulse Rate 94 91 92 Respiratory Rate 20 18 13 Blood Pressure Pulse Oximetry 97 97 93 Oxygen Delive
--- NOTE | 2022-03-20 19:16 | WPDCNPSYCH ---
[facility] Data of Consult Date/Time: 03/20/22 19:16 Requesting Physician: Kristian Benjamin MD Primary Care Provider: Tha Cook, Consult Narrative Narrative: CHIEF COMPLAINT/REASON FOR HOSPITALIZATION/REASON FOR PSYCHIATRIC CONSULTATION: patient is a 66-year-old lady admitted through the emergency department for mental status changes associated with an intentional baclofen overdose Whose consultation was ordered by Dr. Benjamin. HISTORY OF PRESENT ILLNESS: Patient was a compromised historian due to confusion probably secondary to delirium from her baclofen overdose. the patient, her physician, and her nurse as well as her served as historians. Focus: According to the patient's their daughter was placed in substance abuse rehab 2 days ago. The patient's reports that he thinks she took too many muscle relaxers not in an effort to end life but for relief. The patient reports that she initially was having difficulty sleeping so she took 5 baclofen. Sometime later she took 4 more baclofen as well as Ambien 12.5mg. Her tried to awaken her. She had an altered mental status and was having hallucinations. Her states that she was yelling loudly and she was making comments about having holes in her forearms. The patient's had their 48-year-old son drive her to the emergency department and was then subsequently admitted. Quality: The patient reports having both depression and anxiety on most days for many many years. She reports that she only has hallucinations either when she is having a urinary tract infection or after she has overdosed. Otherwise the patient has no additional spontaneously reported emotional or psychological symptoms. Associated symptoms: When prompted, the patient reports that she has depressed and anxious mood on most days for many years. She reports that she has insomnia unless she takes sleeping pills and this has been the case for many years. Her weight has been constant. The patient reports that she has feelings of worthlessness only sometimes but not on most days. The patient's reports that she has had feelings of worthlessness on most days. Both she and her endorse that she struggles with anhedonia. The patient reports she has been having increased irritability and crabbiness. And both her and the patient report decreased concentration and a low activity level all of which have been present for many many years. The patient denies any auditory or visual hallucinations or paranoia at time of interview. However the patient told the nurse during my interview of her that she smelled alcohol on me. Concern for a possible olfactory hallucination is clearly present. However in the context of this recent overdose, temporal lobe epilepsy is a less likely diagnostic formulation. Caroline evaluation: Patient denies ever having been diagnosed with bipolar disorder or manic depression. The patient has insufficient evidence at this interview to support the diagnosis of bipolar disorder. Self-harm evaluation: Patient denies any prior history of intentional cutting or burning herself. Suicide evaluation: Patient denies suicidal ideation at time of interview. The patient denies any recent or remote history of suicidal or homicidal ideation or attempt. She denies trying to end life with her recent overdose on pills. The patient's has stated that he has seen her take as many as 20 pills at once.The patient denies owning any guns. She reports that her owns guns but they are safely stored in a gun safe. She indicates she has no access to those guns. She denies any family history of completed or attempted suicide. PAST PSYCHIATRIC HISTORY: Patient reports that her 1st mental health care was in her 30s when she had counseling. She reports her 1st psychiatric hospitalization was in her 30s and was psychiatrically hospitalized a total of 2 times
[2022-03-20] MEDS: clonazePAM (*CRX) 0.5 MG TABLET 1 MG PO (23:34)
[2022-03-21 00:28] LABS: Vitamin D 25 Hydroxy 45.2 ng/mL
[2022-03-21 00:32] LABS: HIV 1/2 Ab P24 Ag Result Negative (Negative)
[2022-03-21 00:42] LABS: Hepatitis B Surface Antigen Negative (Negative)
[2022-03-21 00:48] LABS: HAV RESULT Negative (Negative); Hepatitis B Core IgM Result Negative (Negative)
[2022-03-21 01:12] LABS: Hepatitis C Virus Antibody Reactive (Negative)
[2022-03-21 06:00] VITALS: BP 148/69; PULSE 89; RESP 16; TEMP 36.1; O2SAT 95
[2022-03-21 09:18] VITALS: PULSE 94
[2022-03-21] MEDS: DICYCLOMINE HCL 10 MG CAPSULE 20 MG PO (09:18)
[2022-03-21] MEDS: SPIRONOLACTONE 25 MG TABLET PO (09:18)
[2022-03-21] MEDS: clonazePAM (*CRX) 0.5 MG TABLET 1 MG PO (09:18)
[2022-03-21] MEDS: carvediloL 12.5 MG TABLET PO (09:18)
[2022-03-21] MEDS: COLESTIPOL HCL 1 GM TABLET PO (09:19)
[2022-03-21] MEDS: PANTOPRAZOLE 40 MG TABLET PO (09:19)
[2022-03-21] MEDS: LEVOTHYROXINE SODIUM 88 MCG TABLET PO (09:19)
--- NOTE | 2022-03-21 09:45 | ECG_ITS ---
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
[2022-03-21 11:28] LABS: Rapid Plasma Reagin Non-Reactive (NonReactive)
--- NOTE | 2022-03-21 11:50 | PM.DS ---
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 Patient was brought to the emergency room for evaluation due to altered mental status as per family members,? she has been her usual state of health prior to this although she states has had a significant amount of stress as of lately.? Denies any fevers, rigors, chills, nausea, vomiting, cough, sputum production, no pain or burning with urination, no? abdominal pain. preliminary workup has been essentially nonrevealing. Patient was found to have overdosed on baclofen to relieve her stress. Upon admission, Patient's psychiatric medications were stopped. Patient was monitored on telemetry. Psychiatry consult was obtained. Patient has a history of severe depression. The psychiatrist recommended we stop all her psychiatric meds at this point of time. Patient's mental status gradually improved. This morning she does not have any more delirium. Patient was tearful and wanted to go home. I discussed her case with the psychiatrist. The psychiatrist had recommended in his note that the patient should be admitted to inpatient psychiatry [facility]. Patient does not want to be admitted to psychiatry [facility]. Patient is not suicidal as has been established by myself and the psychiatrist. Her delirium has improved. Patient would benefit from inpatient psychiatry admission but she is refusing. Patient is being discharged home against medical advise. She was advised to follow-up with the psychiatrist next week. At this time I will continue her clonazepam but hold her other psychiatric meds. Time Spent with Patient Time attestation: Total time spent providing and/or coordinating discharge services: Exam Const: General: comfortable, no acute distress, well developed, alert, awake and average body habitus Nutritional Appearance: overweight Orientation/consciousness: patient oriented x3 HENMT: Head: normal to inspection, normocephalic and atraumatic Ears: hearing grossly normal bilaterally Face/Nose/Sinus: normal facial exam Face and sinus: normal facial exam Eyes: General: appearance normal, both eyes and all related structures Pupils: Equal, round and reactive pupils present EOM: EOMs intact bilaterally Neck: Neck: full ROM, no lymphadenopathy and no JVD Thyroid: thyroid normal Lymphatic: no lymphadenopathy noted Resp: Effort & Inspection: normal respiratory effort and able to speak in complete sentences Auscultation: clear to auscultation bilaterally Cardio: Jugular venous distension: no JVD Rate: regular rate Rhythm: regular rhythm Heart sounds: S1 normal heart sound present and S2 normal heart sound present GI: Inspection: Pannus present GI Palp: Yes Soft to palpation and Yes No hepatosplenomegaly present : General: Yes deferred Skin: Rashes: no rashes Wounds: no wounds Neuro: General: patient oriented x3 and CN's II-XI intact bilaterally Cranial nerves: Yes CN's II-XII intact bilaterally and Yes Equal, round and reactive pupils present Cognition (Neuro): normal cognition Speech: normal speech Gait exam (Neuro): Unable to assess gait Motor exam (neuro): 5/5 motor strength present throughout Extrem: General: normal to inspection, full ROM, no joint enlargement and no pedal edema DS: Data Data Completed and Pending Labs on day of discharge: Labs from last 24 hours 03/20/22 03/20/22 03/20/22 23:34 23:34 23:34 Sodium Potassium C
[2022-03-24 13:27] LABS: Hepatitis C RNA, Quant PCR <15 IU/mL
[2022-03-25 14:32] LABS: Nortriptyline 13 mcg/L (50-150)
== END 2022-03-21 10:30 | disposition left against medical advice (07) ==
LOC: ANHED 20:13 → ANH3MEDSUR 03-20
PROVIDERS: Psychiatry & Neurology Psychiatry; Admitting Provider Internal Medicine; Emergency Provider Emergency Medicine; PCP Internal Medicine; Visit Provider Hospitalist
DX: R41.82 Altered mental status, unspecified (principal); T42.8X1A Poisoning by antiparkinsonism drugs and other central muscle-tone depressants, accidental (unintentional), initial encounter; R44.3 Hallucinations, unspecified; I13.0 Hypertensive heart and chronic kidney disease with heart failure and stage 1 through stage 4 chronic kidney disease, or unspecified chronic kidney disease; N18.9 Chronic kidney disease, unspecified; I50.20 Unspecified systolic (congestive) heart failure; I42.8 Other cardiomyopathies; Z95.810 Presence of automatic (implantable) cardiac defibrillator; F41.8 Other specified anxiety disorders; K21.9 Gastro-esophageal reflux disease without esophagitis; E03.9 Hypothyroidism, unspecified; E66.3 Overweight; Z68.31 Body mass index [BMI] 31.0-31.9, adult; Z20.822 Contact with and (suspected) exposure to COVID-19; D72.829 Elevated white blood cell count, unspecified; R79.89 Other specified abnormal findings of blood chemistry; R94.4 Abnormal results of kidney function studies; Z53.29 Procedure and treatment not carried out because of patient's decision for other reasons; F17.290 Nicotine dependence, other tobacco product, uncomplicated; Z79.899 Other long term (current) drug therapy; Z86.19 Personal history of other infectious and parasitic diseases
CPT/HCPCS: 36415; 51701; 70450; 71045; 80048; 80053; 80074; 80307; 80335; 81001; 82306; 82607; 82746; 83605; 85025; 85610; 85730; 86592; 86703; 87040; 87522; 87637; 93005; 96361; 96365; 99285; A9270; G0378; G0432; G0480; J0131; J7030

== ENCOUNTER 2024-07-07 13:30 | Outpatient (CLI) | payer MEDICARE, BC, SELFPAY ==
--- NOTE | ~2024-07-07 | XR_ITS ---
Left Shoulder Technique: AP and scapular Y views were obtained. Clinical History: Pain Findings: No fracture or dislocation is seen. There is severe glenohumeral joint degenerative change, prominent inferomedial humeral head osteophyte. There is mild AC joint degenerative change. Soft tis sues are unremarkable. Impression: Severe glenohumeral joint degenerative change. Mild AC joint degenerative change. Reviewed, dictated and finalized at location . Impression: Severe glenohumeral joint degenerative change. Mild AC joint degenerative change.
--- NOTE | ~2024-07-07 | XR_ITS ---
Right Shoulder Technique: AP and scapular Y views were obtained. Clinical History: Pain Findings: No fracture or dislocation is seen. Osseous alignment is anatomic. The glenohumeral joint d emonstrates advanced degenerative change. There is mild AC joint degenerative change. There is promin ent for medial humeral head osteophyte. Soft tissues are unremarkable. Impression: Advanced glenohumeral joint degenerative change. Mild AC joint degenerative change. Reviewed, dictated and finalized at location . Impression: Advanced glenohumeral joint degenerative change. Mild AC joint degenerative abigail nge.
== END 2024-07-07 13:31 | disposition home or self-care (01) ==
PROVIDERS: PCP Physical Medicine & Rehabilitation Pain Medicine; Visit Provider Physical Medicine & Rehabilitation Pain Medicine
DX: M19.011 Primary osteoarthritis, right shoulder (principal); M19.012 Primary osteoarthritis, left shoulder
CPT/HCPCS: 73030